=== PATIENT | female | born 1955 | race Caucasian/White ===

== ENCOUNTER 2019-04-12 12:34 | Inpatient (IN) | payer MEDICARE ==
[~2019-04-12] VITALS: Ht 167.6 cm; Wt 63.8 kg
--- NOTE | 2019-04-12 12:46 | NUR ---
MD AT BEDSIDE TO ASSES PT
--- NOTE | 2019-04-12 12:46 | NUR ---
64YO FEMALE PT BIB EMS FOR NOT FEELING BETTER AFTER ABX USE SINCE MAR 27. PT REPORTS N/V THIS AM AND JUST FEELING WEAK. PT IS CONNECTED TO MONITORING, VSS. FAMILY AT BEDSIDE. CALL LIGHT WITHIN REACH.
--- NOTE | 2019-04-12 12:53 | NUR ---
LAB AT BEDSIDE FOR BLOOD WORK
[2019-04-12] MEDS ORDERED: SODIUM CHLORIDE 0.9% 1,000ML IVBOLUS ONE (13:00)
[2019-04-12] MEDS ORDERED: SODIUM CHLORIDE FLUSH 10ML SYR IVF ONE (13:00)
[2019-04-12 13:10] LABS: BASOPHILS % (AUTO) 0 % (0-1); EOSINOPHILS # (AUTO) 0.11 x10^3/uL (0-0.4); EOSINOPHILS % (AUTO) 1 % (1-7); LYMPHOCYTES # (AUTO) 0.74 x10^3/uL (1-3.4); LYMPHOCYTES % (AUTO) 8 % (22-44); MD NO; MEAN CORPUSCULAR HGB CONC 32.5 g/dL (32.4-35.8); MEAN CORPUSCULAR VOLUME 92.4 fL (80-100); MEAN PLATELET VOLUME 9.3 fL (7.4-10.4); MONOCYTES # (AUTO) 0.36 x10^3/uL (0.2-0.8); MONOCYTES % (AUTO) 4 % (2-9); NEUTROPHILS # (AUTO) 7.83 x10^3/uL (1.8-6.8); NEUTROPHILS % (AUTO) 87 % (42-75); PLATELET COUNT 388 x10^3/uL (130-400); RED BLOOD COUNT 5.33 x10^6/uL (3.82-5.3); RED CELL DISTRIBUTION WIDTH 14.1 % (9.6-15.2)
[2019-04-12] MEDS ORDERED: ONDANSETRON 2MG/ML, 2ML ONE (13:10)
--- NOTE | 2019-04-12 13:14 | NUR ---
PT MEDICATED PER MAR
[2019-04-12 13:19] LABS: ALANINE AMINOTRANSFERASE 13 U/L (12-78); ALBUMIN 3.1 g/dL (3.4-5.0); ANION GAP 9 mmol/L (5-15); CALCIUM 8.9 mg/dL (8.5-10.1); CHLORIDE 100 mmol/L (98-107); CREATININE 1.09 mg/dL (0.55-1.02)
[2019-04-12 13:21] LABS: ALKALINE PHOSPHATASE 70 U/L (45-117); BILIRUBIN,TOTAL 0.3 mg/dL (0.2-1.0); TOTAL PROTEIN 7.3 g/dL (6.4-8.2)
--- NOTE | 2019-04-12 13:23 | NUR ---
STRAIGHT CATH PERFORMED URINE SENT TO LAB AT THIS TIME
[2019-04-12] MEDS ORDERED: ONDANSETRON 2MG/ML, 2ML IVPush ONE (13:30)
[2019-04-12 13:43] LABS: CULTURE INDICATED? YES; MICROSCOPIC INDICATED
--- NOTE | 2019-04-12 13:47 | NUR ---
PT RESTING ON GURNEY WATCHING TV WITH FAMILY AT BEDSIDE. NADN. CALL LIGHT WITHIN REACH
[2019-04-12] MEDS ORDERED: HYDR25TA6 PO (14:40)
[2019-04-12] MEDS ORDERED: LISI-167 PO (14:40)
[2019-04-12] MEDS ORDERED: INSU100V8 SQ (14:40)
[2019-04-12] MEDS ORDERED: FLUO60TA PO (14:40)
[2019-04-12] MEDS ORDERED: ATOR20TA86 PO (14:40)
[2019-04-12] MEDS ORDERED: ASPI1CPM9 PO (14:40)
--- NOTE | 2019-04-12 15:13 | NUR ---
THROUGHPUT: REPORT CALLED BY PRIMARY RN, PATIENT READY FOR TRANSPORT, DURING TRANSPORT OF CARE BY EMT TO FLOOR, PATIENT'S FAMILY MEMBER DEMANDING PATIENT TO RECEIVE ZOFRAN, FAMILY MEMBER NOTIFIED PATIENT RECEIVED ZOFRAN AT 1312 AND NO FURTHER ORDERS WERE NOTED AT THIS TIME. PATIENT NOT ACTIVELY VOMITING, NADN. SPOKE TO DR ESPARZA, AWAITING ASSESSMENT BY [facility] PRIOR TO FURTHER INTERVENTIONS. FAMILY MEMBER UPDATED ON POC, FAMILY REQUESTING NAMES OF STAFF MEMBERS INVOLVED IN CARE, NAMES PROVIDED PER REQUEST, PATIENT TRANSPORTED UPSTAIRS VIA GURNEY BY EMT WITH FAMILY MEMBER, BHUPINDER.
[2019-04-12 15:26] VITALS: BP 147/85
[2019-04-12] MEDS ORDERED: BISACODYL 10 MG SUPP PR PRN (16:30)
[2019-04-12] MEDS ORDERED: POLYETHYLENE GLYCOL 17 GM PACKET PO PRN (16:30)
[2019-04-12] MEDS ORDERED: ACETAMINOPHEN 325 MG TABLET PO PRN (16:30)
[2019-04-12] MEDS ORDERED: ONDANSETRON 2MG/ML, 2ML IVPush PRN (16:30)
[2019-04-12] MEDS ORDERED: DOCUSATE 100 MG CAPSULE PO PRN (16:30)
[2019-04-12] MEDS ORDERED: DEXTROSE 50%, 50ML SYRINGE IVPush PRN (17:00)
[2019-04-12] MEDS ORDERED: PROMETHAZINE 25 MG/ML, 1ML IM PRN (17:00)
[2019-04-12] MEDS ORDERED: DEXTROSE 4 GM TAB.CHEW PO PRN (17:00)
[2019-04-12] MEDS ORDERED: GLUCAGON 1 MG IM PRN (17:00)
[2019-04-12] MEDS ORDERED: PROMETHAZINE 25 MG/ML, 1ML ONE (17:01)
[2019-04-12] MEDS: CEFTRIAXONE PMX 1GM/50ML 50 ML IV SCH (17:26)
[2019-04-12] MEDS: FLUCONAZOLE 200 MG TABLET PO SCH (17:26)
[2019-04-12] MEDS: ENOXAPARIN 40 MG/0.4 ML SQ SCH (17:27)
[2019-04-12] MEDS: SODIUM CHLORIDE 0.9% 1,000 ML IV SCH (17:27)
[2019-04-12 19:05] VITALS: BP 122/74
[2019-04-12] MEDS: SODIUM CHLORIDE FLUSH 10ML SYR IVF SCH (21:00)
[2019-04-12] MEDS: ASPIRIN/DIPYRIDAMOLE 25MG/200MG CAPSULE PO SCH (21:12)
[2019-04-12] MEDS: ATORVASTATIN 20 MG TABLET PO SCH (21:12)
[2019-04-12] MEDS: INSULIN LISPRO 100 UNITS/ML, PEN SQ-INSULIN SCH (21:26)
[2019-04-12] MEDS ORDERED: IBUPROFEN 200 MG TABLET PO PRN (23:30)
[2019-04-13] MEDS: OXYcodone IR 5MG TABLET PO PRN ×2 (00:43→22:52)
[2019-04-13] MEDS: SODIUM CHLORIDE 0.9% 1,000 ML IV SCH ×2 (00:43→07:55)
[2019-04-13 01:17] VITALS: BP 160/93
[2019-04-13 04:28] LABS: BASOPHILS # (AUTO) 0.06 x10^3/uL (0-0.1); BASOPHILS % (AUTO) 1 % (0-1); EOSINOPHILS # (AUTO) 0.14 x10^3/uL (0-0.4); EOSINOPHILS % (AUTO) 2 % (1-7); LYMPHOCYTES # (AUTO) 1.83 x10^3/uL (1-3.4); LYMPHOCYTES % (AUTO) 19 % (22-44); MD NO; MEAN CORPUSCULAR HEMOGLOBIN 30.2 pg (27.0-34.8); MEAN CORPUSCULAR HGB CONC 32.6 g/dL (32.4-35.8); MEAN CORPUSCULAR VOLUME 92.6 fL (80-100); MEAN PLATELET VOLUME 8.9 fL (7.4-10.4); MONOCYTES # (AUTO) 0.71 x10^3/uL (0.2-0.8); MONOCYTES % (AUTO) 8 % (2-9); NEUTROPHILS # (AUTO) 6.69 x10^3/uL (1.8-6.8); NEUTROPHILS % (AUTO) 71 % (42-75); PLATELET COUNT 353 x10^3/uL (130-400); RED CELL DISTRIBUTION WIDTH 14.6 % (9.6-15.2)
[2019-04-13 04:41] LABS: ALBUMIN 2.5 g/dL (3.4-5.0); ANION GAP 7 mmol/L (5-15); CALCIUM 8.2 mg/dL (8.5-10.1); CHLORIDE 106 mmol/L (98-107)
[2019-04-13 04:53] LABS: ALANINE AMINOTRANSFERASE 8 U/L (12-78); ALKALINE PHOSPHATASE 51 U/L (45-117); BILIRUBIN,TOTAL 0.3 mg/dL (0.2-1.0); CREATININE 0.89 mg/dL (0.55-1.02); TOTAL PROTEIN 5.8 g/dL (6.4-8.2)
[2019-04-13 07:35] VITALS: BP 144/87
[2019-04-13 07:36] VITALS: BP 114/66
[2019-04-13 07:42] VITALS: BP 104/66
[2019-04-13] MEDS: INSULIN LISPRO 100 UNITS/ML, PEN SQ-INSULIN SCH ×4 (07:55→20:39)
[2019-04-13] MEDS ORDERED: MAGNESIUM SULFATE PMX 2GM/50ML 50 ML IV ONE (08:00)
[2019-04-13 09:16] LABS: HEMOGLOBIN A1C 13.1 % (4.2-6.3)
[2019-04-13] MEDS: ASPIRIN/DIPYRIDAMOLE 25MG/200MG CAPSULE PO SCH ×2 (10:25→20:39)
[2019-04-13] MEDS: FLUOXETINE HCL 20 MG CAPSULE PO SCH (10:25)
[2019-04-13] MEDS: SODIUM CHLORIDE FLUSH 10ML SYR IVF SCH ×2 (10:25→20:43)
[2019-04-13] MEDS: INSULIN GLARGINE 100 UNITS/ML, PEN SQ-INSULIN SCH (11:40)
--- NOTE | 2019-04-13 13:47 | NUR ---
REC: Chopped/thin liquids; orange sheet posted in room Addendum: 04/13/19 at 1347 by Martha HARDEN Amended: Links added.
[2019-04-13 14:30] VITALS: BP 136/82
[2019-04-13] MEDS ORDERED: OMNIPAQUE 350 MG/ML, 100ML BOTTLE ONE (16:01)
[2019-04-13] MEDS: CEFTRIAXONE PMX 1GM/50ML 50 ML IV SCH (17:04)
[2019-04-13] MEDS: FLUCONAZOLE 200 MG TABLET PO SCH (17:04)
[2019-04-13] MEDS: ENOXAPARIN 40 MG/0.4 ML SQ SCH (17:05)
[2019-04-13 19:20] VITALS: BP 151/75
[2019-04-13] MEDS: ATORVASTATIN 20 MG TABLET PO SCH (20:38)
[2019-04-14] VITALS (9 sets, daily range): BP systolic 99–166; BP diastolic 65–89
[2019-04-14] MEDS: INSULIN LISPRO 100 UNITS/ML, PEN SQ-INSULIN SCH ×4 (07:00→20:17)
[2019-04-14] MEDS: SODIUM CHLORIDE FLUSH 10ML SYR IVF SCH ×2 (09:00→20:17)
[2019-04-14] MEDS: INSULIN GLARGINE 100 UNITS/ML, PEN SQ-INSULIN SCH (09:00)
[2019-04-14] MEDS: ASPIRIN/DIPYRIDAMOLE 25MG/200MG CAPSULE PO SCH ×2 (09:27→20:16)
[2019-04-14] MEDS: FLUOXETINE HCL 20 MG CAPSULE PO SCH (09:27)
[2019-04-14] MEDS ORDERED: MAALOX/HYOSCYAMINE/LIDOCAINE 45 ML BTL PO ONE (11:00)
[2019-04-14] MEDS: FLUCONAZOLE 200 MG TABLET PO SCH (16:41)
[2019-04-14] MEDS: OXYcodone IR 5MG TABLET PO PRN (16:44)
[2019-04-14] MEDS: ENOXAPARIN 40 MG/0.4 ML SQ SCH (16:48)
[2019-04-14] MEDS: CEFTRIAXONE PMX 1GM/50ML 50 ML IV SCH (16:52)
[2019-04-14] MEDS: ATORVASTATIN 20 MG TABLET PO SCH (20:16)
[2019-04-15] VITALS (10 sets, daily range): BP systolic 114–178; BP diastolic 68–93
[2019-04-15 05:47] LABS: ANION GAP 4 mmol/L (5-15); CALCIUM 8.9 mg/dL (8.5-10.1); CHLORIDE 103 mmol/L (98-107)
[2019-04-15 05:51] LABS: CREATININE 0.78 mg/dL (0.55-1.02)
[2019-04-15] MEDS: ASPIRIN/DIPYRIDAMOLE 25MG/200MG CAPSULE PO SCH (07:40)
[2019-04-15] MEDS: FLUOXETINE HCL 20 MG CAPSULE PO SCH (07:41)
[2019-04-15] MEDS: INSULIN LISPRO 100 UNITS/ML, PEN SQ-INSULIN SCH ×3 (07:45→16:52)
[2019-04-15] MEDS: SODIUM CHLORIDE FLUSH 10ML SYR IVF SCH (07:46)
[2019-04-15] MEDS ORDERED: LISINOPRIL 10 MG TABLET PO SCH (09:00)
[2019-04-15] MEDS: INSULIN GLARGINE 100 UNITS/ML, PEN SQ-INSULIN SCH (10:15)
[2019-04-15] MEDS ORDERED: FLUC200T PO (16:20)
[2019-04-15] MEDS: CEFTRIAXONE PMX 1GM/50ML 50 ML IV SCH (16:52)
[2019-04-15] MEDS: FLUCONAZOLE 200 MG TABLET PO SCH (16:53)
[2019-04-15] MEDS: ENOXAPARIN 40 MG/0.4 ML SQ SCH (16:53)
== END 2019-04-15 17:47 | disposition home health service (06) | DRG 757 ==
LOC: ED 14:13 → EDIP 14:35 → 4NE 15:15
PROVIDERS: ADMIT Internal Medicine; ATTEND Internal Medicine
PROC: 0T9B70Z Drainage of Bladder with Drainage Device, Via Natural or Artificial Opening (ICD-10-PCS; principal; 2019-04-12)
DX: B37.49 Other urogenital candidiasis (principal); G93.41 Metabolic encephalopathy; N17.9 Acute kidney failure, unspecified; E87.1 Hypo-osmolality and hyponatremia; I69.354 Hemiplegia and hemiparesis following cerebral infarction affecting left non-dominant side; I12.9 Hypertensive chronic kidney disease with stage 1 through stage 4 chronic kidney disease, or unspecified chronic kidney disease; E11.22 Type 2 diabetes mellitus with diabetic chronic kidney disease; E11.51 Type 2 diabetes mellitus with diabetic peripheral angiopathy without gangrene; E11.65 Type 2 diabetes mellitus with hyperglycemia; E27.9 Disorder of adrenal gland, unspecified; E83.42 Hypomagnesemia; F17.200 Nicotine dependence, unspecified, uncomplicated; G35 Multiple sclerosis; N18.9 Chronic kidney disease, unspecified; Z79.4 Long term (current) use of insulin; Z80.1 Family history of malignant neoplasm of trachea, bronchus and lung; I69.391 Dysphagia following cerebral infarction; Z80.3 Family history of malignant neoplasm of breast; Z80.49 Family history of malignant neoplasm of other genital organs; Z91.19 Patient's noncompliance with other medical treatment and regimen; Z90.49 Acquired absence of other specified parts of digestive tract; Z88.8 Allergy status to other drugs, medicaments and biological substances
CPT/HCPCS: 36415; 74178; 76770; 80048; 80053; 81001; 82088; 82140; 82533; 82607; 82962; 83036; 83690; 83735; 84100; 84244; 84443; 85025; 87040; 87086; 87106; 93005; 99285; G0378; J0696; J1650; J2405; J2550; Q9967; J1815; J3475; J7030

== ENCOUNTER 2019-12-28 07:33 | Inpatient (IN) | payer MEDICARE ==
[~2019-12-28] VITALS: Ht 162.6 cm; Wt 66.5 kg
[~2019-12-28 07:33] MED LIST: AMLO10TA8 PO; ASPI1CPM9 PO; ATOR20TA86 PO; CEFD300C37 PO; DOCU-131 PO; FLUC200T PO; FLUO60TA PO; GABA-826 PO; HYDR25TA6 PO; INSU100I11 SQ-INSULIN; INSU100I13 SQ-INSULIN; INSU100V8 SQ; LISI-167 PO; POLY17PO5 PO; depakote PO
[2019-12-28] MEDS ORDERED: ONDANSETRON 2MG/ML, 2ML ONE (08:16)
[2019-12-28] MEDS ORDERED: MORPHINE SULFATE 4 MG/ML, 1ML ONE (08:17)
--- NOTE | 2019-12-28 08:22 | NUR ---
MEDS PER AUG. CATHETER CLAMPED FOR CLEAN URINE SAMPLE. PLAN FOR US. VSS. CALL MENDOZA IN REACH. PT NAD, ON PHONE, A&OX4 GCS 15.
[2019-12-28] MEDS: MORPHINE SULFATE 4 MG/ML, 1ML IVPush PRN (08:25)
[2019-12-28] MEDS ORDERED: SODIUM CHLORIDE FLUSH 10ML SYR IVF ONE (08:30)
[2019-12-28] MEDS ORDERED: ONDANSETRON 2MG/ML, 2ML IVPush ONE (08:30)
[2019-12-28 08:49] LABS: BASOPHILS # (AUTO) 0.01 x10^3/uL (0-0.1); BASOPHILS % (AUTO) 0 % (0-1); EOSINOPHILS # (AUTO) 0.32 x10^3/uL (0-0.4); EOSINOPHILS % (AUTO) 3 % (1-7); LYMPHOCYTES # (AUTO) 1.91 x10^3/uL (1-3.4); LYMPHOCYTES % (AUTO) 17 % (22-44); MD NO; MEAN CORPUSCULAR HEMOGLOBIN 30.2 pg (27.0-34.8); MEAN CORPUSCULAR HGB CONC 32.2 g/dL (32.4-35.8); MEAN PLATELET VOLUME 8.2 fL (7.4-10.4); MONOCYTES # (AUTO) 0.55 x10^3/uL (0.2-0.8); MONOCYTES % (AUTO) 5 % (2-9); NEUTROPHILS # (AUTO) 8.64 x10^3/uL (1.8-6.8); NEUTROPHILS % (AUTO) 76 % (42-75); PLATELET COUNT 450 x10^3/uL (130-400); RED BLOOD COUNT 4.53 x10^6/uL (3.82-5.3); RED CELL DISTRIBUTION WIDTH 16.1 % (9.6-15.2)
[2019-12-28 08:58] LABS: MICROSCOPIC INDICATED
[2019-12-28 09:00] LABS: ALBUMIN 3.6 g/dL (3.4-5.0); CALCIUM 9.9 mg/dL (8.5-10.1); CHLORIDE 103 mmol/L (98-107); CREATININE 0.82 mg/dL (0.55-1.02)
[2019-12-28 09:05] LABS: ANION GAP 4 mmol/L (5-15)
--- NOTE | 2019-12-28 09:30 | NUR ---
pt tbadm for uti, aware and agrees. sts pain is improved. abx req from pharm. as
[2019-12-28] MEDS ORDERED: ERTAPENEM 1 GM in SODIUM CHLORIDE 0.9% 50 ML IV ONE (10:00)
--- NOTE | 2019-12-28 10:10 | NUR ---
attempt x2 to call report. as
--- NOTE | 2019-12-28 10:29 | NUR ---
report to jennifer scott. as
[2019-12-28] MEDS ORDERED: MICAFUNGIN 50 MG in SODIUM CHLORIDE 0.9% 100 ML IV ONE (11:00)
[2019-12-28 14:16] VITALS: BP 198/83
[2019-12-28] MEDS: NICOTINE 21 MG/24 HR PATCH.TD24 TD SCH (16:30)
[2019-12-28] MEDS: INSULIN LISPRO 100 UNITS/ML, PEN SQ-INSULIN SCH ×2 (16:30→20:39)
[2019-12-28] MEDS: HEPARIN 5,000 UNITS/ML, 1ML SQ SCH (16:34)
[2019-12-28] MEDS: DIPHENHYDRAMINE 25 MG CAPSULE PO PRN (16:34)
[2019-12-28] MEDS: SODIUM CHLORIDE 0.9% 1,000 ML IV SCH (16:34)
[2019-12-28] MEDS: morphine SULFATE 10 MG/ML, 1ML IVPush PRN ×2 (17:30→22:56)
[2019-12-28 18:50] VITALS: BP 155/68
[2019-12-28 19:22] VITALS: BP 176/80
[2019-12-28] MEDS: ASPIRIN/DIPYRIDAMOLE 25MG/200MG CAPSULE PO SCH (20:37)
[2019-12-28] MEDS: DOCUSATE 100 MG CAPSULE PO SCH (20:37)
[2019-12-28] MEDS: ATORVASTATIN 20 MG TABLET PO SCH (20:37)
[2019-12-28 20:49] VITALS: BP 152/68
[2019-12-28] MEDS ORDERED: INSULIN GLARGINE 100 UNITS/ML, PEN SQ-INSULIN SCH (21:00)
[2019-12-28] MEDS ORDERED: OMNIPAQUE 350 MG/ML, 100ML BOTTLE ONE (22:23)
[2019-12-29] MEDS: HEPARIN 5,000 UNITS/ML, 1ML SQ SCH ×4 (00:43→23:31)
[2019-12-29] MEDS: OXYcodone/APAP 5/325MG TABLET PO PRN (00:43)
[2019-12-29] MEDS: DIPHENHYDRAMINE 25 MG CAPSULE PO PRN ×3 (00:43→23:32)
[2019-12-29 01:23] VITALS: BP 155/99
[2019-12-29] MEDS: ONDANSETRON 2MG/ML, 2ML IVPush PRN ×2 (01:36→19:42)
[2019-12-29] MEDS: morphine SULFATE 10 MG/ML, 1ML IVPush PRN ×3 (02:06→23:32)
[2019-12-29] MEDS: SODIUM CHLORIDE 0.9% 1,000 ML IV SCH (05:25)
[2019-12-29 05:40] LABS: BASOPHILS # (AUTO) 0.05 x10^3/uL (0-0.1); BASOPHILS % (AUTO) 0 % (0-1); EOSINOPHILS # (AUTO) 0.11 x10^3/uL (0-0.4); EOSINOPHILS % (AUTO) 1 % (1-7); LYMPHOCYTES # (AUTO) 2.16 x10^3/uL (1-3.4); LYMPHOCYTES % (AUTO) 16 % (22-44); MD NO; MEAN CORPUSCULAR HEMOGLOBIN 30.5 pg (27.0-34.8); MEAN CORPUSCULAR HGB CONC 32.4 g/dL (32.4-35.8); MEAN PLATELET VOLUME 8.4 fL (7.4-10.4); MONOCYTES # (AUTO) 0.52 x10^3/uL (0.2-0.8); MONOCYTES % (AUTO) 4 % (2-9); NEUTROPHILS # (AUTO) 10.67 x10^3/uL (1.8-6.8); NEUTROPHILS % (AUTO) 79 % (42-75); PLATELET COUNT 382 x10^3/uL (130-400); RED BLOOD COUNT 3.82 x10^6/uL (3.82-5.3); RED CELL DISTRIBUTION WIDTH 16.2 % (9.6-15.2)
[2019-12-29 05:52] LABS: ALBUMIN 2.8 g/dL (3.4-5.0); ANION GAP 4 mmol/L (5-15); CALCIUM 9.1 mg/dL (8.5-10.1); CHLORIDE 104 mmol/L (98-107)
[2019-12-29 05:58] LABS: ALANINE AMINOTRANSFERASE 14 U/L (12-78); ALKALINE PHOSPHATASE 77 U/L (45-117); BILIRUBIN,TOTAL 0.3 mg/dL (0.2-1.0)
[2019-12-29 08:20] VITALS: BP 167/65
[2019-12-29] MEDS: INSULIN LISPRO 100 UNITS/ML, PEN SQ-INSULIN SCH ×4 (08:33→21:45)
[2019-12-29] MEDS: AMLODIPINE 10 MG TAB PO SCH (08:34)
[2019-12-29] MEDS: ASPIRIN/DIPYRIDAMOLE 25MG/200MG CAPSULE PO SCH ×2 (08:34→19:42)
[2019-12-29] MEDS: FLUOXETINE HCL 20 MG CAPSULE PO SCH (08:34)
[2019-12-29] MEDS: DOCUSATE 100 MG CAPSULE PO SCH ×2 (08:34→19:42)
[2019-12-29] MEDS ORDERED: LISINOPRIL 10 MG TABLET PO SCH (09:00)
[2019-12-29] MEDS: MICAFUNGIN 100 MG in SODIUM CHLORIDE 0.9% 100 ML IV SCH (10:15)
[2019-12-29] MEDS: ERTAPENEM 1 GM in SODIUM CHLORIDE 0.9% 50 ML IV SCH (12:45)
[2019-12-29 13:23] VITALS: BP 166/76
[2019-12-29] MEDS: NICOTINE 21 MG/24 HR PATCH.TD24 TD SCH (16:29)
[2019-12-29] MEDS: MORPHINE SULFATE 4 MG/ML, 1ML IVPush PRN (16:29)
[2019-12-29] MEDS: ATORVASTATIN 20 MG TABLET PO SCH (19:42)
[2019-12-29 21:13] VITALS: BP 154/77
[2019-12-29] MEDS: INSULIN GLARGINE 100 UNITS/ML, PEN SQ-INSULIN SCH (21:35)
[2019-12-30 00:28] VITALS: BP 163/77
[2019-12-30] MEDS: morphine SULFATE 10 MG/ML, 1ML IVPush PRN ×2 (03:10→12:14)
[2019-12-30] MEDS: ONDANSETRON 2MG/ML, 2ML IVPush PRN (03:10)
[2019-12-30 05:33] LABS: BASOPHILS # (AUTO) 0.03 x10^3/uL (0-0.1); BASOPHILS % (AUTO) 0 % (0-1); EOSINOPHILS # (AUTO) 0.15 x10^3/uL (0-0.4); EOSINOPHILS % (AUTO) 2 % (1-7); LYMPHOCYTES # (AUTO) 2.28 x10^3/uL (1-3.4); LYMPHOCYTES % (AUTO) 24 % (22-44); MD NO; MEAN CORPUSCULAR HEMOGLOBIN 30.3 pg (27.0-34.8); MEAN CORPUSCULAR HGB CONC 32.4 g/dL (32.4-35.8); MEAN PLATELET VOLUME 8.9 fL (7.4-10.4); MONOCYTES # (AUTO) 0.54 x10^3/uL (0.2-0.8); MONOCYTES % (AUTO) 6 % (2-9); NEUTROPHILS # (AUTO) 6.37 x10^3/uL (1.8-6.8); NEUTROPHILS % (AUTO) 68 % (42-75); PLATELET COUNT 362 x10^3/uL (130-400); RED BLOOD COUNT 3.79 x10^6/uL (3.82-5.3)
[2019-12-30] MEDS: INSULIN LISPRO 100 UNITS/ML, PEN SQ-INSULIN SCH ×4 (07:00→20:04)
[2019-12-30] MEDS: HEPARIN 5,000 UNITS/ML, 1ML SQ SCH ×2 (08:09→16:10)
[2019-12-30] MEDS: ASPIRIN/DIPYRIDAMOLE 25MG/200MG CAPSULE PO SCH ×2 (08:09→20:03)
[2019-12-30] MEDS: FLUOXETINE HCL 20 MG CAPSULE PO SCH (08:10)
[2019-12-30] MEDS: AMLODIPINE 10 MG TAB PO SCH (08:10)
[2019-12-30] MEDS: LISINOPRIL 40 MG TABLET PO SCH (08:10)
[2019-12-30] MEDS: DOCUSATE 100 MG CAPSULE PO SCH ×2 (08:10→20:03)
[2019-12-30 08:31] VITALS: BP 146/79
[2019-12-30] MEDS: CHLORTHALIDONE 25 MG TABLET PO SCH (10:28)
[2019-12-30] MEDS: MICAFUNGIN 100 MG in SODIUM CHLORIDE 0.9% 100 ML IV SCH (10:28)
[2019-12-30] MEDS: ERTAPENEM 1 GM in SODIUM CHLORIDE 0.9% 50 ML IV SCH (11:58)
[2019-12-30 15:39] VITALS: BP 148/75
[2019-12-30] MEDS: VORICONAZOLE 200 MG TABLET PO SCH (16:10)
[2019-12-30] MEDS: NICOTINE 21 MG/24 HR PATCH.TD24 TD SCH (16:11)
[2019-12-30] MEDS: DIPHENHYDRAMINE 25 MG CAPSULE PO PRN (20:03)
[2019-12-30] MEDS: MAGNESIUM HYDROXIDE 8%, 30ML UDC PO SCH (20:03)
[2019-12-30] MEDS: ATORVASTATIN 20 MG TABLET PO SCH (20:03)
[2019-12-30] MEDS: INSULIN GLARGINE 100 UNITS/ML, PEN SQ-INSULIN SCH (20:04)
[2019-12-30 20:24] VITALS: BP 177/72
[2019-12-31] MEDS: OXYcodone/APAP 5/325MG TABLET PO PRN ×2 (00:01→14:23)
[2019-12-31] MEDS: HEPARIN 5,000 UNITS/ML, 1ML SQ SCH ×3 (00:01→15:52)
[2019-12-31 00:14] VITALS: BP 153/69
[2019-12-31] MEDS: VORICONAZOLE 200 MG TABLET PO SCH ×2 (03:28→15:52)
[2019-12-31] MEDS: INSULIN LISPRO 100 UNITS/ML, PEN SQ-INSULIN SCH ×4 (07:00→21:38)
[2019-12-31 07:37] VITALS: BP 162/78
[2019-12-31] MEDS: ASPIRIN/DIPYRIDAMOLE 25MG/200MG CAPSULE PO SCH ×2 (07:49→21:37)
[2019-12-31] MEDS: DIPHENHYDRAMINE 25 MG CAPSULE PO PRN (07:50)
[2019-12-31] MEDS: AMLODIPINE 10 MG TAB PO SCH (07:50)
[2019-12-31] MEDS: LISINOPRIL 40 MG TABLET PO SCH (07:50)
[2019-12-31] MEDS: CHLORTHALIDONE 25 MG TABLET PO SCH ×2 (07:50→09:00)
[2019-12-31] MEDS: DOCUSATE 100 MG CAPSULE PO SCH ×2 (07:50→21:37)
[2019-12-31] MEDS: FLUOXETINE HCL 20 MG CAPSULE PO SCH (07:50)
[2019-12-31] MEDS: CYCLOBENZAPRINE 10 MG TABLET PO PRN (12:26)
[2019-12-31 13:15] VITALS: BP 162/82
[2019-12-31] MEDS: NICOTINE 21 MG/24 HR PATCH.TD24 TD SCH (15:51)
[2019-12-31 19:13] VITALS: BP 124/71
[2019-12-31] MEDS: ATORVASTATIN 20 MG TABLET PO SCH (21:37)
[2019-12-31] MEDS: VORICONAZOLE 50 MG TABLET PO SCH (21:37)
[2019-12-31] MEDS: MAGNESIUM HYDROXIDE 8%, 30ML UDC PO SCH (21:37)
[2019-12-31] MEDS: INSULIN GLARGINE 100 UNITS/ML, PEN SQ-INSULIN SCH (21:38)
[2020-01-01] MEDS: HEPARIN 5,000 UNITS/ML, 1ML SQ SCH ×3 (00:30→16:05)
[2020-01-01 01:03] VITALS: BP 135/77
[2020-01-01] MEDS: DIPHENHYDRAMINE 25 MG CAPSULE PO PRN (03:35)
[2020-01-01] MEDS: OXYcodone/APAP 5/325MG TABLET PO PRN (03:35)
[2020-01-01] MEDS: INSULIN LISPRO 100 UNITS/ML, PEN SQ-INSULIN SCH ×4 (07:00→20:07)
[2020-01-01 07:54] VITALS: BP 121/74
[2020-01-01] MEDS ORDERED: POLYETHYLENE GLYCOL 17 GM PACKET NG ONE (08:30)
[2020-01-01] MEDS: LISINOPRIL 40 MG TABLET PO SCH (08:58)
[2020-01-01] MEDS: ASPIRIN/DIPYRIDAMOLE 25MG/200MG CAPSULE PO SCH ×2 (08:58→20:05)
[2020-01-01] MEDS: TAMSULOSIN 0.4 MG CAP.ER.24H PO SCH (08:59)
[2020-01-01] MEDS: FLUOXETINE HCL 20 MG CAPSULE PO SCH (08:59)
[2020-01-01] MEDS: VORICONAZOLE 50 MG TABLET PO SCH ×2 (08:59→20:06)
[2020-01-01] MEDS: AMLODIPINE 10 MG TAB PO SCH (08:59)
[2020-01-01] MEDS: CHLORTHALIDONE 25 MG TABLET PO SCH (10:25)
[2020-01-01] MEDS: DOCUSATE 100 MG CAPSULE PO SCH ×2 (10:25→20:06)
[2020-01-01] MEDS ORDERED: VORI50TA PO ×2 (11:54)
[2020-01-01] MEDS ORDERED: MAGN400O7 PO (11:54)
[2020-01-01] MEDS ORDERED: CHLO25TA PO ×2 (11:54)
[2020-01-01] MEDS ORDERED: INSU100I13 SQ-INSULIN ×2 (11:54)
[2020-01-01] MEDS ORDERED: LISI40TA PO ×2 (11:54)
[2020-01-01] MEDS ORDERED: TAMS-11 PO (11:54)
[2020-01-01 14:50] VITALS: BP 125/76
[2020-01-01] MEDS: NICOTINE 21 MG/24 HR PATCH.TD24 TD SCH (16:01)
[2020-01-01] MEDS: MAGNESIUM HYDROXIDE 8%, 30ML UDC PO SCH (20:05)
[2020-01-01] MEDS: INSULIN GLARGINE 100 UNITS/ML, PEN SQ-INSULIN SCH (20:06)
[2020-01-01] MEDS: ATORVASTATIN 20 MG TABLET PO SCH (20:06)
[2020-01-01 20:15] VITALS: BP 100/65
[2020-01-02] VITALS (18 sets, daily range): BP systolic 76–110; BP diastolic 38–73
[2020-01-02] MEDS: HEPARIN 5,000 UNITS/ML, 1ML SQ SCH ×3 (01:06→16:52)
[2020-01-02] MEDS: OXYcodone/APAP 5/325MG TABLET PO PRN ×3 (04:33→21:21)
[2020-01-02] MEDS: ONDANSETRON 2MG/ML, 2ML IVPush PRN (04:33)
[2020-01-02] MEDS ORDERED: SODIUM CHLORIDE 0.9%, 500ML IVBOLUS ONE ×3 (07:30→18:30)
[2020-01-02] MEDS: ASPIRIN/DIPYRIDAMOLE 25MG/200MG CAPSULE PO SCH ×2 (07:49→21:10)
[2020-01-02] MEDS: VORICONAZOLE 50 MG TABLET PO SCH ×2 (07:50→21:10)
[2020-01-02] MEDS: TAMSULOSIN 0.4 MG CAP.ER.24H PO SCH (07:51)
[2020-01-02] MEDS: FLUOXETINE HCL 20 MG CAPSULE PO SCH (07:51)
[2020-01-02] MEDS: INSULIN LISPRO 100 UNITS/ML, PEN SQ-INSULIN SCH ×4 (07:52→21:08)
[2020-01-02] MEDS: DOCUSATE 100 MG CAPSULE PO SCH ×2 (07:53→19:02)
[2020-01-02] MEDS: CHLORTHALIDONE 25 MG TABLET PO SCH (07:53)
[2020-01-02] MEDS: LISINOPRIL 40 MG TABLET PO SCH (07:53)
[2020-01-02] MEDS: AMLODIPINE 10 MG TAB PO SCH (07:53)
[2020-01-02 08:35] LABS: MEAN CORPUSCULAR HGB CONC 31.9 g/dL (32.4-35.8); MEAN PLATELET VOLUME 8.8 fL (7.4-10.4); PLATELET COUNT 395 x10^3/uL (130-400); RED BLOOD COUNT 4.23 x10^6/uL (3.82-5.3); RED CELL DISTRIBUTION WIDTH 16.4 % (9.6-15.2)
[2020-01-02] MEDS ORDERED: SODIUM CHLORIDE 0.9% 1,000ML IVBOLUS ONE ×2 (09:00→11:30)
[2020-01-02 09:04] LABS: MD YES
[2020-01-02 09:06] LABS: BAND#(MANUAL) 1.62 x10^3/uL; BANDS%(MANUAL) 9 % (0-7); EOS#(MANUAL) 0.18 x10^3/uL (0.0-0.4); EOS% (MANUAL) 1 % (1-7); LYMPH#(MANUAL) 1.44 x10^3/uL (1-3.4); LYMPHS% (MANUAL) 8 % (22-44); MONOS#(MANUAL) 1.26 x10^3/uL (0.3-2.7); MONOS% (MANUAL) 7 % (2-9); SEGS% (MANUAL) 75 % (42-75)
[2020-01-02 09:07] LABS: <PLATELET ESTIMATE> ADEQUATE; <PLT MORPHOLOGY> NORMAL PLT MORPH; <RBC MORPHOLOGY> NORMAL
[2020-01-02 09:31] LABS: ALANINE AMINOTRANSFERASE 14 U/L (12-78); ALBUMIN 3.1 g/dL (3.4-5.0); ANION GAP 6 mmol/L (5-15); CALCIUM 9.9 mg/dL (8.5-10.1); CHLORIDE 103 mmol/L (98-107)
[2020-01-02 09:34] LABS: ALKALINE PHOSPHATASE 70 U/L (45-117); BILIRUBIN,TOTAL 0.4 mg/dL (0.2-1.0); CREATININE 2.02 mg/dL (0.55-1.02)
[2020-01-02] MEDS: SODIUM CHLORIDE 0.9% 1,000 ML IV SCH ×5 (12:30→22:52)
[2020-01-02 15:49] LABS: BASOPHILS % (AUTO) 0 % (0-1); EOSINOPHILS # (AUTO) 0.01 x10^3/uL (0-0.4); EOSINOPHILS % (AUTO) 0 % (1-7); LYMPHOCYTES # (AUTO) 1.02 x10^3/uL (1-3.4); LYMPHOCYTES % (AUTO) 6 % (22-44); MD YES; MEAN CORPUSCULAR HEMOGLOBIN 30.4 pg (27.0-34.8); MEAN CORPUSCULAR HGB CONC 32.4 g/dL (32.4-35.8); MEAN PLATELET VOLUME 8.6 fL (7.4-10.4); MONOCYTES % (AUTO) 5 % (2-9); NEUTROPHILS # (AUTO) 16.86 x10^3/uL (1.8-6.8); NEUTROPHILS % (AUTO) 90 % (42-75); PLATELET COUNT 338 x10^3/uL (130-400); RED BLOOD COUNT 3.53 x10^6/uL (3.82-5.3); RED CELL DISTRIBUTION WIDTH 16.7 % (9.6-15.2)
[2020-01-02 15:56] LABS: MICROSCOPIC INDICATED
[2020-01-02] MEDS: NICOTINE 21 MG/24 HR PATCH.TD24 TD SCH (16:30)
[2020-01-02] MEDS ORDERED: MICAFUNGIN 150 MG in SODIUM CHLORIDE 0.9% 100 ML IV SCH (16:30)
[2020-01-02] MEDS ORDERED: MEROPENEM 500 MG in SODIUM CHLORIDE 0.9% 100 ML IV SCH (16:30)
[2020-01-02 16:38] LABS: BAND#(MANUAL) 1.13 x10^3/uL; BANDS%(MANUAL) 6 % (0-7); LYMPHS% (MANUAL) 8 % (22-44); MONOS#(MANUAL) 0.38 x10^3/uL (0.3-2.7); MONOS% (MANUAL) 2 % (2-9); SEG#(MANUAL) 15.79 x10^3/uL (1.8-6.8); SEGS% (MANUAL) 84 % (42-75)
[2020-01-02 16:39] LABS: <PLATELET ESTIMATE> ADEQUATE; <PLT MORPHOLOGY> NORMAL PLT MORPH; <RBC MORPHOLOGY> NORMAL
[2020-01-02] MEDS: MEROPENEM 500 MG in SODIUM CHLORIDE 0.9% 100 ML IV SCH (17:59)
[2020-01-02] MEDS: MAGNESIUM HYDROXIDE 8%, 30ML UDC PO SCH (19:02)
[2020-01-02] MEDS: INSULIN GLARGINE 100 UNITS/ML, PEN SQ-INSULIN SCH (21:10)
[2020-01-02] MEDS: ATORVASTATIN 20 MG TABLET PO SCH (21:10)
[2020-01-03] VITALS (12 sets, daily range): BP systolic 72–163; BP diastolic 38–68
[2020-01-03] MEDS ORDERED: SODIUM CHLORIDE 0.9%, 500ML IVBOLUS ONE
[2020-01-03] MEDS: HEPARIN 5,000 UNITS/ML, 1ML SQ SCH ×4 (00:30→23:54)
[2020-01-03] MEDS ORDERED: SODIUM CHLORIDE 0.9% 1,000ML IVBOLUS ONE (02:30)
[2020-01-03 04:14] LABS: HCT (SEDRATE) 30.8 % (34.6-47.8)
[2020-01-03 04:16] LABS: MEAN CORPUSCULAR HEMOGLOBIN 30.7 pg (27.0-34.8); MEAN PLATELET VOLUME 8.6 fL (7.4-10.4); PLATELET COUNT 294 x10^3/uL (130-400); RED BLOOD COUNT 3.23 x10^6/uL (3.82-5.3); RED CELL DISTRIBUTION WIDTH 16.2 % (9.6-15.2)
[2020-01-03 04:23] LABS: ALANINE AMINOTRANSFERASE 12 U/L (12-78); ALBUMIN 2.2 g/dL (3.4-5.0); ANION GAP 6 mmol/L (5-15); CALCIUM 7.7 mg/dL (8.5-10.1); CHLORIDE 113 mmol/L (98-107); CREATININE 1.06 mg/dL (0.55-1.02)
[2020-01-03 04:31] LABS: ALKALINE PHOSPHATASE 53 U/L (45-117); BILIRUBIN,TOTAL 0.2 mg/dL (0.2-1.0); TOTAL PROTEIN 5.4 g/dL (6.4-8.2)
[2020-01-03 04:50] LABS: MD YES
[2020-01-03 04:53] LABS: BAND#(MANUAL) 0.14 x10^3/uL; BANDS%(MANUAL) 1 % (0-7); EOS#(MANUAL) 0.14 x10^3/uL (0.0-0.4); EOS% (MANUAL) 1 % (1-7); LYMPH#(MANUAL) 1.41 x10^3/uL (1-3.4); LYMPHS% (MANUAL) 10 % (22-44); METAMYELOCYTES# (MANUAL) 0.14 x10^3/uL (0-0); METAMYELOCYTES% (MANUAL) 1 % (0-1); MONOS#(MANUAL) 1.69 x10^3/uL (0.3-2.7); MONOS% (MANUAL) 12 % (2-9); SEG#(MANUAL) 10.58 x10^3/uL (1.8-6.8); SEGS% (MANUAL) 75 % (42-75)
[2020-01-03 04:54] LABS: ANISOCYTOSIS 1+
[2020-01-03 04:56] LABS: <PLATELET ESTIMATE> ADEQUATE; LARGE PLATELETS 1+
[2020-01-03] MEDS: SODIUM CHLORIDE 0.9% 1,000 ML IV SCH ×2 (05:29→16:46)
[2020-01-03] MEDS: MEROPENEM 500 MG in SODIUM CHLORIDE 0.9% 100 ML IV SCH (05:32)
[2020-01-03] MEDS: INSULIN LISPRO 100 UNITS/ML, PEN SQ-INSULIN SCH ×4 (07:43→20:59)
[2020-01-03] MEDS: TAMSULOSIN 0.4 MG CAP.ER.24H PO SCH (08:08)
[2020-01-03] MEDS: FLUOXETINE HCL 20 MG CAPSULE PO SCH (08:09)
[2020-01-03] MEDS: ASPIRIN/DIPYRIDAMOLE 25MG/200MG CAPSULE PO SCH ×2 (08:09→21:02)
[2020-01-03] MEDS: VORICONAZOLE 50 MG TABLET PO SCH ×2 (08:10→21:03)
[2020-01-03] MEDS: DOCUSATE 100 MG CAPSULE PO SCH ×2 (08:11→21:00)
[2020-01-03] MEDS ORDERED: DEXTROSE 4 GM TAB.CHEW PO PRN (14:30)
[2020-01-03] MEDS ORDERED: GLUCAGON 1 MG IM PRN (14:30)
[2020-01-03] MEDS ORDERED: DEXTROSE 50%, 50ML SYRINGE IVPush PRN (14:30)
[2020-01-03] MEDS: NICOTINE 21 MG/24 HR PATCH.TD24 TD SCH (17:04)
[2020-01-03] MEDS ORDERED: INSULIN GLARGINE 100 UNITS/ML, PEN SQ-INSULIN SCH (21:00)
[2020-01-03] MEDS: MAGNESIUM HYDROXIDE 8%, 30ML UDC PO SCH (21:00)
[2020-01-03] MEDS: OXYcodone/APAP 5/325MG TABLET PO PRN (21:01)
[2020-01-03] MEDS: ATORVASTATIN 20 MG TABLET PO SCH (21:02)
[2020-01-03] MEDS: SODIUM CHLORIDE FLUSH 10ML SYR IVF SCH (21:02)
[2020-01-04] MEDS: SODIUM CHLORIDE 0.9% 1,000 ML IV SCH (00:02)
[2020-01-04 07:29] VITALS: BP 157/73
[2020-01-04 07:57] LABS: MEAN CORPUSCULAR HEMOGLOBIN 30.1 pg (27.0-34.8); MEAN CORPUSCULAR HGB CONC 31.9 g/dL (32.4-35.8); MEAN PLATELET VOLUME 8.6 fL (7.4-10.4); PLATELET COUNT 342 x10^3/uL (130-400); RED BLOOD COUNT 3.45 x10^6/uL (3.82-5.3); RED CELL DISTRIBUTION WIDTH 16.3 % (9.6-15.2)
[2020-01-04] MEDS: INSULIN LISPRO 100 UNITS/ML, PEN SQ-INSULIN SCH ×4 (08:01→21:46)
[2020-01-04 08:08] LABS: ALANINE AMINOTRANSFERASE 15 U/L (12-78); ALBUMIN 2.4 g/dL (3.4-5.0); CREATININE 0.54 mg/dL (0.55-1.02)
[2020-01-04 08:10] LABS: ALKALINE PHOSPHATASE 63 U/L (45-117); BILIRUBIN,TOTAL 0.2 mg/dL (0.2-1.0)
[2020-01-04 08:22] LABS: ANION GAP 6 mmol/L (5-15); CHLORIDE 112 mmol/L (98-107)
[2020-01-04] MEDS: HEPARIN 5,000 UNITS/ML, 1ML SQ SCH ×2 (08:41→16:18)
[2020-01-04] MEDS: TAMSULOSIN 0.4 MG CAP.ER.24H PO SCH (08:41)
[2020-01-04] MEDS: VORICONAZOLE 50 MG TABLET PO SCH ×2 (08:41→21:48)
[2020-01-04] MEDS: ASPIRIN/DIPYRIDAMOLE 25MG/200MG CAPSULE PO SCH ×2 (08:41→21:48)
[2020-01-04] MEDS: FLUOXETINE HCL 20 MG CAPSULE PO SCH (08:41)
[2020-01-04] MEDS: LISINOPRIL 40 MG TABLET PO SCH (08:46)
[2020-01-04] MEDS: DOCUSATE 100 MG CAPSULE PO SCH ×2 (08:47→21:00)
[2020-01-04] MEDS: SODIUM CHLORIDE FLUSH 10ML SYR IVF SCH ×2 (08:47→21:45)
[2020-01-04 09:05] LABS: MD YES
[2020-01-04 09:07] LABS: <PLATELET ESTIMATE> ADEQUATE; <PLT MORPHOLOGY> NORMAL PLT MORPH; ANISOCYTOSIS 1+; LYMPH#(MANUAL) 1.09 x10^3/uL (1-3.4); LYMPHS% (MANUAL) 8 % (22-44); MONOS#(MANUAL) 0.82 x10^3/uL (0.3-2.7); MONOS% (MANUAL) 6 % (2-9); SEGS% (MANUAL) 86 % (42-75)
[2020-01-04] MEDS ORDERED: VORICONAZOLE 200 MG TABLET PO ONE ×2 (09:30→21:30)
[2020-01-04 14:07] VITALS: BP 173/69
[2020-01-04] MEDS: LABETALOL 5MG/ML, 20ML IVPush PRN ×2 (14:14→17:27)
[2020-01-04] MEDS: GABAPENTIN 100 MG CAPSULE PO PRN (14:14)
[2020-01-04] MEDS ORDERED: OMNIPAQUE 350 MG/ML, 100ML BOTTLE ONE (15:01)
[2020-01-04] MEDS: NICOTINE 21 MG/24 HR PATCH.TD24 TD SCH (16:21)
[2020-01-04 17:24] VITALS: BP 172/75
[2020-01-04 19:52] VITALS: BP 145/72
[2020-01-04] MEDS ORDERED: INSULIN GLARGINE 100 UNITS/ML, PEN SQ-INSULIN SCH ×2 (21:00)
[2020-01-04] MEDS: MAGNESIUM HYDROXIDE 8%, 30ML UDC PO SCH (21:00)
[2020-01-04] MEDS: OXYcodone/APAP 5/325MG TABLET PO PRN (21:49)
[2020-01-04] MEDS: ATORVASTATIN 20 MG TABLET PO SCH (21:56)
[2020-01-05 01:17] VITALS: BP 111/62
[2020-01-05] MEDS: HEPARIN 5,000 UNITS/ML, 1ML SQ SCH ×3 (01:19→17:13)
[2020-01-05] MEDS: CYCLOBENZAPRINE 10 MG TABLET PO PRN ×2 (06:21→17:14)
[2020-01-05 06:30] LABS: MEAN CORPUSCULAR HEMOGLOBIN 30.2 pg (27.0-34.8); MEAN CORPUSCULAR HGB CONC 31.7 g/dL (32.4-35.8); MEAN PLATELET VOLUME 9.2 fL (7.4-10.4); PLATELET COUNT 369 x10^3/uL (130-400); RED BLOOD COUNT 3.47 x10^6/uL (3.82-5.3); RED CELL DISTRIBUTION WIDTH 16.6 % (9.6-15.2)
[2020-01-05 06:41] VITALS: BP_SYST 134; BP_SYST 138; BP_DIAS 63; BP_DIAS 74
[2020-01-05] MEDS: INSULIN LISPRO 100 UNITS/ML, PEN SQ-INSULIN SCH ×4 (07:00→20:44)
[2020-01-05 07:17] LABS: BASOPHILS # (AUTO) 0.05 x10^3/uL (0-0.1); BASOPHILS % (AUTO) 0 % (0-1); EOSINOPHILS # (AUTO) 0.58 x10^3/uL (0-0.4); EOSINOPHILS % (AUTO) 5 % (1-7); LYMPHOCYTES # (AUTO) 2.21 x10^3/uL (1-3.4); LYMPHOCYTES % (AUTO) 19 % (22-44); MD SCAN; MONOCYTES % (AUTO) 4 % (2-9); NEUTROPHILS # (AUTO) 8.11 x10^3/uL (1.8-6.8); NEUTROPHILS % (AUTO) 71 % (42-75)
[2020-01-05] MEDS: DOCUSATE 100 MG CAPSULE PO SCH ×2 (09:00→20:43)
[2020-01-05 09:21] VITALS: BP 120/69
[2020-01-05] MEDS: TAMSULOSIN 0.4 MG CAP.ER.24H PO SCH (09:22)
[2020-01-05] MEDS: ASPIRIN/DIPYRIDAMOLE 25MG/200MG CAPSULE PO SCH ×2 (09:22→20:43)
[2020-01-05] MEDS: FLUOXETINE HCL 20 MG CAPSULE PO SCH (09:22)
[2020-01-05] MEDS: LISINOPRIL 40 MG TABLET PO SCH (09:22)
[2020-01-05] MEDS: VORICONAZOLE 200 MG TABLET PO SCH ×2 (09:22→20:43)
[2020-01-05] MEDS: SODIUM CHLORIDE FLUSH 10ML SYR IVF SCH ×2 (09:23→20:43)
[2020-01-05 13:07] VITALS: BP 132/76
[2020-01-05] MEDS: NICOTINE 21 MG/24 HR PATCH.TD24 TD SCH (16:30)
[2020-01-05 19:49] VITALS: BP 165/79
[2020-01-05] MEDS: ATORVASTATIN 20 MG TABLET PO SCH (20:43)
[2020-01-05] MEDS: MAGNESIUM HYDROXIDE 8%, 30ML UDC PO SCH (20:43)
[2020-01-05] MEDS: GABAPENTIN 100 MG CAPSULE PO PRN (20:43)
[2020-01-05] MEDS: INSULIN GLARGINE 100 UNITS/ML, PEN SQ-INSULIN SCH (20:45)
[2020-01-05] MEDS: DIPHENHYDRAMINE 25 MG CAPSULE PO PRN (22:27)
[2020-01-05 23:53] VITALS: BP 137/77
[2020-01-06] MEDS: HEPARIN 5,000 UNITS/ML, 1ML SQ SCH ×3 (00:01→17:20)
[2020-01-06 05:21] VITALS: BP 144/77
[2020-01-06 06:14] LABS: ALBUMIN 2.7 g/dL (3.4-5.0); ANION GAP 5 mmol/L (5-15); CALCIUM 9.4 mg/dL (8.5-10.1); CHLORIDE 107 mmol/L (98-107)
[2020-01-06 06:18] LABS: ALANINE AMINOTRANSFERASE 12 U/L (12-78); ALKALINE PHOSPHATASE 81 U/L (45-117); BILIRUBIN,TOTAL 0.2 mg/dL (0.2-1.0); CREATININE 0.69 mg/dL (0.55-1.02); TOTAL PROTEIN 6.8 g/dL (6.4-8.2)
[2020-01-06 06:21] LABS: BASOPHILS # (AUTO) 0.07 x10^3/uL (0-0.1); BASOPHILS % (AUTO) 1 % (0-1); EOSINOPHILS # (AUTO) 0.65 x10^3/uL (0-0.4); EOSINOPHILS % (AUTO) 6 % (1-7); LYMPHOCYTES # (AUTO) 2.71 x10^3/uL (1-3.4); LYMPHOCYTES % (AUTO) 23 % (22-44); MD NO; MEAN CORPUSCULAR HEMOGLOBIN 30.7 pg (27.0-34.8); MEAN CORPUSCULAR HGB CONC 32.7 g/dL (32.4-35.8); MEAN PLATELET VOLUME 9.2 fL (7.4-10.4); MONOCYTES # (AUTO) 0.72 x10^3/uL (0.2-0.8); MONOCYTES % (AUTO) 6 % (2-9); NEUTROPHILS # (AUTO) 7.46 x10^3/uL (1.8-6.8); NEUTROPHILS % (AUTO) 64 % (42-75); PLATELET COUNT 450 x10^3/uL (130-400); RED BLOOD COUNT 3.71 x10^6/uL (3.82-5.3); RED CELL DISTRIBUTION WIDTH 16.2 % (9.6-15.2)
[2020-01-06] MEDS: INSULIN LISPRO 100 UNITS/ML, PEN SQ-INSULIN SCH ×4 (07:00→20:24)
[2020-01-06 07:58] VITALS: BP 116/70
[2020-01-06] MEDS: FLUOXETINE HCL 20 MG CAPSULE PO SCH (08:09)
[2020-01-06] MEDS: ASPIRIN/DIPYRIDAMOLE 25MG/200MG CAPSULE PO SCH ×2 (08:09→20:00)
[2020-01-06] MEDS: SODIUM CHLORIDE FLUSH 10ML SYR IVF SCH ×2 (08:09→20:02)
[2020-01-06] MEDS: TAMSULOSIN 0.4 MG CAP.ER.24H PO SCH (08:10)
[2020-01-06] MEDS: LISINOPRIL 40 MG TABLET PO SCH (08:10)
[2020-01-06] MEDS: VORICONAZOLE 200 MG TABLET PO SCH ×2 (08:10→20:00)
[2020-01-06] MEDS: DOCUSATE 100 MG CAPSULE PO SCH ×2 (08:10→20:00)
[2020-01-06] MEDS ORDERED: MAGNESIUM CITRATE 300ML ORAL SOL PO ONE ×2 (10:30→17:30)
[2020-01-06] MEDS: ACETAMINOPHEN 325 MG TABLET PO PRN (11:47)
[2020-01-06] MEDS: CYCLOBENZAPRINE 10 MG TABLET PO PRN ×2 (11:47→19:59)
[2020-01-06] MEDS: ONDANSETRON 2MG/ML, 2ML IVPush PRN (12:03)
[2020-01-06 12:44] VITALS: BP 117/69
[2020-01-06] MEDS: NICOTINE 21 MG/24 HR PATCH.TD24 TD SCH (16:11)
[2020-01-06 17:18] VITALS: BP 137/74
[2020-01-06] MEDS: METOPROLOL TARTRATE 25 MG TAB PO SCH (17:21)
[2020-01-06] MEDS: OXYcodone/APAP 5/325MG TABLET PO PRN (17:27)
[2020-01-06] MEDS: ATORVASTATIN 20 MG TABLET PO SCH (20:00)
[2020-01-06] MEDS: MAGNESIUM HYDROXIDE 8%, 30ML UDC PO SCH (20:00)
[2020-01-06] MEDS: GABAPENTIN 100 MG CAPSULE PO PRN (20:17)
[2020-01-06] MEDS: INSULIN GLARGINE 100 UNITS/ML, PEN SQ-INSULIN SCH (20:24)
[2020-01-06 21:00] VITALS: BP 124/69
[2020-01-07] MEDS: OXYcodone/APAP 5/325MG TABLET PO PRN ×2 (00:01→21:38)
[2020-01-07 01:28] VITALS: BP 120/81
[2020-01-07 05:00] VITALS: BP 105/60
[2020-01-07] MEDS: METOPROLOL TARTRATE 25 MG TAB PO SCH ×2 (05:18→17:00)
[2020-01-07 06:35] VITALS: BP 98/57
[2020-01-07] MEDS: INSULIN LISPRO 100 UNITS/ML, PEN SQ-INSULIN SCH ×4 (07:00→21:00)
[2020-01-07] MEDS: HEPARIN 5,000 UNITS/ML, 1ML SQ SCH ×3 (08:03→16:59)
[2020-01-07] MEDS: DOCUSATE 100 MG CAPSULE PO SCH ×2 (08:03→21:00)
[2020-01-07] MEDS: FLUOXETINE HCL 20 MG CAPSULE PO SCH (08:03)
[2020-01-07] MEDS: ASPIRIN/DIPYRIDAMOLE 25MG/200MG CAPSULE PO SCH ×2 (08:04→21:38)
[2020-01-07] MEDS: LISINOPRIL 40 MG TABLET PO SCH (08:04)
[2020-01-07] MEDS: SODIUM CHLORIDE FLUSH 10ML SYR IVF SCH ×2 (08:04→21:00)
[2020-01-07] MEDS: TAMSULOSIN 0.4 MG CAP.ER.24H PO SCH (08:04)
[2020-01-07] MEDS ORDERED: LIDODERM REMOVE PATCH NOTE XX PRN (10:30)
[2020-01-07] MEDS: DIPHENHYDRAMINE 25 MG CAPSULE PO PRN (11:43)
[2020-01-07 13:08] VITALS: BP 102/64
[2020-01-07 14:34] LABS: BASOPHILS # (AUTO) 0.04 x10^3/uL (0-0.1); BASOPHILS % (AUTO) 0 % (0-1); EOSINOPHILS # (AUTO) 0.48 x10^3/uL (0-0.4); EOSINOPHILS % (AUTO) 4 % (1-7); LYMPHOCYTES % (AUTO) 33 % (22-44); MD NO; MEAN CORPUSCULAR HEMOGLOBIN 30.5 pg (27.0-34.8); MEAN CORPUSCULAR HGB CONC 32.6 g/dL (32.4-35.8); MEAN PLATELET VOLUME 8.3 fL (7.4-10.4); MONOCYTES # (AUTO) 0.87 x10^3/uL (0.2-0.8); MONOCYTES % (AUTO) 8 % (2-9); NEUTROPHILS # (AUTO) 5.88 x10^3/uL (1.8-6.8); NEUTROPHILS % (AUTO) 54 % (42-75); PLATELET COUNT 529 x10^3/uL (130-400); RED BLOOD COUNT 3.99 x10^6/uL (3.82-5.3); RED CELL DISTRIBUTION WIDTH 15.8 % (9.6-15.2)
[2020-01-07] MEDS: NICOTINE 21 MG/24 HR PATCH.TD24 TD SCH (16:30)
[2020-01-07 18:30] VITALS: BP 94/56
[2020-01-07] MEDS: INSULIN GLARGINE 100 UNITS/ML, PEN SQ-INSULIN SCH (21:00)
[2020-01-07] MEDS: MAGNESIUM HYDROXIDE 8%, 30ML UDC PO SCH (21:00)
[2020-01-07] MEDS: ATORVASTATIN 20 MG TABLET PO SCH (21:37)
[2020-01-07] MEDS: GABAPENTIN 100 MG CAPSULE PO PRN (21:37)
[2020-01-07] MEDS: LIDODERM 5% PATCH TD PRN (21:37)
[2020-01-07] MEDS: CYCLOBENZAPRINE 10 MG TABLET PO PRN (21:38)
[2020-01-08] MEDS: HEPARIN 5,000 UNITS/ML, 1ML SQ SCH ×3 (00:30→16:38)
[2020-01-08] MEDS: ONDANSETRON 2MG/ML, 2ML IVPush PRN (00:49)
[2020-01-08 01:22] VITALS: BP 110/64
[2020-01-08] MEDS: METOPROLOL TARTRATE 25 MG TAB PO SCH ×2 (05:05→18:00)
[2020-01-08] MEDS: OXYcodone/APAP 5/325MG TABLET PO PRN (05:06)
[2020-01-08] MEDS: GABAPENTIN 100 MG CAPSULE PO PRN (05:07)
[2020-01-08] MEDS: CYCLOBENZAPRINE 10 MG TABLET PO PRN (05:07)
[2020-01-08 07:25] VITALS: BP 88/59
[2020-01-08] MEDS: INSULIN LISPRO 100 UNITS/ML, PEN SQ-INSULIN SCH ×4 (08:51→21:20)
[2020-01-08] MEDS: TAMSULOSIN 0.4 MG CAP.ER.24H PO SCH (08:52)
[2020-01-08] MEDS: SODIUM CHLORIDE FLUSH 10ML SYR IVF SCH ×2 (08:52→21:16)
[2020-01-08] MEDS: FLUOXETINE HCL 20 MG CAPSULE PO SCH (08:52)
[2020-01-08] MEDS: ASPIRIN/DIPYRIDAMOLE 25MG/200MG CAPSULE PO SCH ×2 (08:52→21:16)
[2020-01-08] MEDS: DOCUSATE 100 MG CAPSULE PO SCH ×2 (08:53→21:00)
[2020-01-08] MEDS ORDERED: LISINOPRIL 20 MG TABLET PO SCH (09:00)
[2020-01-08 15:25] VITALS: BP 73/51
[2020-01-08] MEDS ORDERED: SODIUM CHLORIDE 0.9% 1,000ML IVBOLUS ONE (16:00)
[2020-01-08 16:26] LABS: BASOPHILS # (AUTO) 0.04 x10^3/uL (0-0.1); BASOPHILS % (AUTO) 0 % (0-1); EOSINOPHILS # (AUTO) 0.42 x10^3/uL (0-0.4); EOSINOPHILS % (AUTO) 3 % (1-7); LYMPHOCYTES # (AUTO) 2.66 x10^3/uL (1-3.4); LYMPHOCYTES % (AUTO) 17 % (22-44); MEAN CORPUSCULAR HEMOGLOBIN 30.3 pg (27.0-34.8); MEAN CORPUSCULAR HGB CONC 32.2 g/dL (32.4-35.8); MEAN PLATELET VOLUME 8.3 fL (7.4-10.4); MONOCYTES # (AUTO) 1.16 x10^3/uL (0.2-0.8); MONOCYTES % (AUTO) 7 % (2-9); NEUTROPHILS # (AUTO) 11.33 x10^3/uL (1.8-6.8); NEUTROPHILS % (AUTO) 73 % (42-75); PLATELET COUNT 522 x10^3/uL (130-400); RED BLOOD COUNT 3.74 x10^6/uL (3.82-5.3); RED CELL DISTRIBUTION WIDTH 16.1 % (9.6-15.2)
[2020-01-08 16:27] LABS: MD NO
[2020-01-08 16:29] LABS: ALANINE AMINOTRANSFERASE 16 U/L (12-78); ALBUMIN 2.6 g/dL (3.4-5.0); ANION GAP 4 mmol/L (5-15); CALCIUM 8.9 mg/dL (8.5-10.1); CHLORIDE 101 mmol/L (98-107); CREATININE 1.78 mg/dL (0.55-1.02)
[2020-01-08] MEDS: NICOTINE 21 MG/24 HR PATCH.TD24 TD SCH (16:30)
[2020-01-08 16:32] LABS: ALKALINE PHOSPHATASE 72 U/L (45-117); BILIRUBIN,TOTAL 0.1 mg/dL (0.2-1.0); TOTAL PROTEIN 6.4 g/dL (6.4-8.2)
[2020-01-08 17:15] VITALS: BP 88/54
[2020-01-08 18:33] VITALS: BP 91/56
[2020-01-08 20:59] VITALS: BP 89/54
[2020-01-08] MEDS: MAGNESIUM HYDROXIDE 8%, 30ML UDC PO SCH (21:00)
[2020-01-08] MEDS ORDERED: INSULIN GLARGINE 100 UNITS/ML, PEN SQ-INSULIN SCH (21:00)
[2020-01-08] MEDS: ATORVASTATIN 20 MG TABLET PO SCH (21:16)
[2020-01-08] MEDS: FLUCONAZOLE 200 MG TABLET PO SCH (22:24)
[2020-01-08 22:33] LABS: MICROSCOPIC INDICATED
[2020-01-09 00:04] VITALS: BP 92/53
[2020-01-09] MEDS: HEPARIN 5,000 UNITS/ML, 1ML SQ SCH ×3 (00:30→16:51)
[2020-01-09] MEDS: METOPROLOL TARTRATE 25 MG TAB PO SCH ×2 (05:39→16:52)
[2020-01-09] MEDS: INSULIN LISPRO 100 UNITS/ML, PEN SQ-INSULIN SCH ×4 (07:00→20:10)
[2020-01-09 07:12] VITALS: BP 128/77
[2020-01-09] MEDS: CYCLOBENZAPRINE 10 MG TABLET PO PRN (08:27)
[2020-01-09] MEDS: FLUOXETINE HCL 20 MG CAPSULE PO SCH (08:27)
[2020-01-09] MEDS: TAMSULOSIN 0.4 MG CAP.ER.24H PO SCH (08:27)
[2020-01-09] MEDS: FLUCONAZOLE 200 MG TABLET PO SCH (08:27)
[2020-01-09] MEDS: ASPIRIN/DIPYRIDAMOLE 25MG/200MG CAPSULE PO SCH ×2 (08:27→20:10)
[2020-01-09] MEDS: DOCUSATE 100 MG CAPSULE PO SCH ×2 (08:41→20:11)
[2020-01-09] MEDS: SODIUM CHLORIDE FLUSH 10ML SYR IVF SCH ×2 (08:52→20:11)
[2020-01-09 12:39] VITALS: BP 133/70
[2020-01-09] MEDS: NICOTINE 21 MG/24 HR PATCH.TD24 TD SCH (16:30)
[2020-01-09 19:23] VITALS: BP 152/64
[2020-01-09] MEDS: MAGNESIUM HYDROXIDE 8%, 30ML UDC PO SCH (20:09)
[2020-01-09] MEDS: ATORVASTATIN 20 MG TABLET PO SCH (20:09)
[2020-01-09] MEDS: OXYcodone/APAP 5/325MG TABLET PO PRN (20:14)
[2020-01-09] MEDS ORDERED: INSULIN GLARGINE 100 UNITS/ML, PEN SQ-INSULIN SCH (21:00)
[2020-01-10 00:09] VITALS: BP 130/81
[2020-01-10] MEDS: HEPARIN 5,000 UNITS/ML, 1ML SQ SCH ×3 (00:30→16:56)
[2020-01-10 02:18] VITALS: BP 121/76
[2020-01-10 05:40] VITALS: BP 158/79
[2020-01-10] MEDS: METOPROLOL TARTRATE 25 MG TAB PO SCH ×2 (05:41→16:53)
[2020-01-10 06:04] LABS: BASOPHILS # (AUTO) 0.06 x10^3/uL (0-0.1); BASOPHILS % (AUTO) 1 % (0-1); EOSINOPHILS % (AUTO) 5 % (1-7); LYMPHOCYTES # (AUTO) 2.88 x10^3/uL (1-3.4); LYMPHOCYTES % (AUTO) 22 % (22-44); MD NO; MEAN CORPUSCULAR HEMOGLOBIN 30.4 pg (27.0-34.8); MEAN CORPUSCULAR HGB CONC 32.3 g/dL (32.4-35.8); MEAN PLATELET VOLUME 8.3 fL (7.4-10.4); MONOCYTES # (AUTO) 1.39 x10^3/uL (0.2-0.8); MONOCYTES % (AUTO) 11 % (2-9); NEUTROPHILS # (AUTO) 8.02 x10^3/uL (1.8-6.8); NEUTROPHILS % (AUTO) 62 % (42-75); PLATELET COUNT 559 x10^3/uL (130-400); RED BLOOD COUNT 3.73 x10^6/uL (3.82-5.3); RED CELL DISTRIBUTION WIDTH 15.9 % (9.6-15.2)
[2020-01-10 06:18] LABS: CHLORIDE 105 mmol/L (98-107)
[2020-01-10 06:25] LABS: ALANINE AMINOTRANSFERASE 18 U/L (12-78); ALBUMIN 2.5 g/dL (3.4-5.0); ALKALINE PHOSPHATASE 92 U/L (45-117); ANION GAP 5 mmol/L (5-15); BILIRUBIN,TOTAL 0.2 mg/dL (0.2-1.0); CALCIUM 9.1 mg/dL (8.5-10.1); CREATININE 0.91 mg/dL (0.55-1.02); TOTAL PROTEIN 6.7 g/dL (6.4-8.2)
[2020-01-10 06:49] VITALS: BP 151/75
[2020-01-10] MEDS: INSULIN LISPRO 100 UNITS/ML, PEN SQ-INSULIN SCH ×4 (07:00→21:37)
[2020-01-10] MEDS: FLUOXETINE HCL 20 MG CAPSULE PO SCH (09:31)
[2020-01-10] MEDS: DOCUSATE 100 MG CAPSULE PO SCH ×2 (09:32→21:35)
[2020-01-10] MEDS: LISINOPRIL 20 MG TABLET PO SCH (09:32)
[2020-01-10] MEDS: FLUCONAZOLE 200 MG TABLET PO SCH (09:32)
[2020-01-10] MEDS: TAMSULOSIN 0.4 MG CAP.ER.24H PO SCH (09:32)
[2020-01-10] MEDS: ASPIRIN/DIPYRIDAMOLE 25MG/200MG CAPSULE PO SCH ×2 (09:32→21:35)
[2020-01-10] MEDS: SODIUM CHLORIDE FLUSH 10ML SYR IVF SCH ×2 (09:33→21:38)
[2020-01-10] MEDS: LIDODERM 5% PATCH TD PRN (09:38)
[2020-01-10] MEDS: CYCLOBENZAPRINE 10 MG TABLET PO PRN (10:37)
[2020-01-10 12:03] VITALS: BP 152/67
[2020-01-10] MEDS: OXYcodone/APAP 5/325MG TABLET PO PRN (12:48)
[2020-01-10] MEDS: NICOTINE 21 MG/24 HR PATCH.TD24 TD SCH (16:30)
[2020-01-10 19:15] VITALS: BP 146/62
[2020-01-10] MEDS: ATORVASTATIN 20 MG TABLET PO SCH (21:35)
[2020-01-10] MEDS: MAGNESIUM HYDROXIDE 8%, 30ML UDC PO SCH (21:35)
[2020-01-10] MEDS: INSULIN GLARGINE 100 UNITS/ML, PEN SQ-INSULIN SCH (21:36)
[2020-01-11 00:41] VITALS: BP 123/64
[2020-01-11] MEDS: HEPARIN 5,000 UNITS/ML, 1ML SQ SCH ×3 (00:51→17:01)
[2020-01-11] MEDS: OXYcodone/APAP 5/325MG TABLET PO PRN ×2 (04:28→15:06)
[2020-01-11] MEDS: DIPHENHYDRAMINE 25 MG CAPSULE PO PRN (04:28)
[2020-01-11 05:26] LABS: BASOPHILS # (AUTO) 0.07 x10^3/uL (0-0.1); BASOPHILS % (AUTO) 0 % (0-1); EOSINOPHILS # (AUTO) 0.62 x10^3/uL (0-0.4); EOSINOPHILS % (AUTO) 4 % (1-7); LYMPHOCYTES # (AUTO) 2.65 x10^3/uL (1-3.4); LYMPHOCYTES % (AUTO) 17 % (22-44); MD NO; MEAN CORPUSCULAR HEMOGLOBIN 30.7 pg (27.0-34.8); MEAN CORPUSCULAR HGB CONC 32.4 g/dL (32.4-35.8); MEAN PLATELET VOLUME 7.9 fL (7.4-10.4); MONOCYTES # (AUTO) 1.03 x10^3/uL (0.2-0.8); MONOCYTES % (AUTO) 7 % (2-9); NEUTROPHILS # (AUTO) 11.32 x10^3/uL (1.8-6.8); NEUTROPHILS % (AUTO) 72 % (42-75); PLATELET COUNT 632 x10^3/uL (130-400); RED BLOOD COUNT 3.79 x10^6/uL (3.82-5.3); RED CELL DISTRIBUTION WIDTH 15.5 % (9.6-15.2)
[2020-01-11 06:32] VITALS: BP 138/78
[2020-01-11] MEDS: METOPROLOL TARTRATE 25 MG TAB PO SCH ×2 (06:33→17:00)
[2020-01-11 07:25] VITALS: BP 120/72
[2020-01-11] MEDS: ASPIRIN/DIPYRIDAMOLE 25MG/200MG CAPSULE PO SCH ×2 (07:56→21:14)
[2020-01-11] MEDS: LISINOPRIL 20 MG TABLET PO SCH (07:56)
[2020-01-11] MEDS: DOCUSATE 100 MG CAPSULE PO SCH ×2 (07:56→21:14)
[2020-01-11] MEDS: TAMSULOSIN 0.4 MG CAP.ER.24H PO SCH (07:57)
[2020-01-11] MEDS: FLUOXETINE HCL 20 MG CAPSULE PO SCH (07:57)
[2020-01-11] MEDS: FLUCONAZOLE 200 MG TABLET PO SCH (07:57)
[2020-01-11] MEDS: INSULIN LISPRO 100 UNITS/ML, PEN SQ-INSULIN SCH ×4 (07:58→20:51)
[2020-01-11] MEDS: SODIUM CHLORIDE FLUSH 10ML SYR IVF SCH ×2 (08:00→21:14)
[2020-01-11 09:56] LABS: HCT (SEDRATE) 35.2 % (34.6-47.8)
[2020-01-11] MEDS: CYCLOBENZAPRINE 10 MG TABLET PO PRN (11:24)
[2020-01-11 15:09] VITALS: BP 146/78
[2020-01-11] MEDS: NICOTINE 21 MG/24 HR PATCH.TD24 TD SCH (16:30)
[2020-01-11 17:57] LABS: MICROSCOPIC AUTO
[2020-01-11 19:25] VITALS: BP 135/82
[2020-01-11] MEDS: ATORVASTATIN 20 MG TABLET PO SCH (21:14)
[2020-01-11] MEDS: MAGNESIUM HYDROXIDE 8%, 30ML UDC PO SCH (21:14)
[2020-01-11] MEDS: INSULIN GLARGINE 100 UNITS/ML, PEN SQ-INSULIN SCH (21:15)
[2020-01-12] MEDS: HEPARIN 5,000 UNITS/ML, 1ML SQ SCH ×3 (01:22→17:59)
[2020-01-12 01:56] VITALS: BP 89/58
[2020-01-12 05:28] VITALS: BP 91/61
[2020-01-12] MEDS: METOPROLOL TARTRATE 25 MG TAB PO SCH (05:51)
[2020-01-12 06:09] LABS: MEAN CORPUSCULAR HEMOGLOBIN 30.4 pg (27.0-34.8); MEAN CORPUSCULAR HGB CONC 32.3 g/dL (32.4-35.8); MEAN PLATELET VOLUME 7.8 fL (7.4-10.4); PLATELET COUNT 674 x10^3/uL (130-400); RED BLOOD COUNT 3.85 x10^6/uL (3.82-5.3); RED CELL DISTRIBUTION WIDTH 15.9 % (9.6-15.2)
[2020-01-12] MEDS: INSULIN LISPRO 100 UNITS/ML, PEN SQ-INSULIN SCH ×4 (06:45→20:24)
[2020-01-12 06:59] LABS: MD YES
[2020-01-12 07:00] VITALS: BP 103/70
[2020-01-12 07:01] LABS: EOS#(MANUAL) 0.72 x10^3/uL (0.0-0.4); EOS% (MANUAL) 4 % (1-7); LYMPH#(MANUAL) 3.96 x10^3/uL (1-3.4); LYMPHS% (MANUAL) 22 % (22-44); MONOS% (MANUAL) 5 % (2-9); REACTIVE LYMPHS # (MANUAL) 0.36 x10^3/uL (0-0); REACTIVE LYMPHS % (MANUAL) 2 % (0-0); SEG#(MANUAL) 12.06 x10^3/uL (1.8-6.8); SEGS% (MANUAL) 67 % (42-75)
[2020-01-12 07:03] LABS: <PLATELET ESTIMATE> INCREASED; ANISOCYTOSIS 1+
[2020-01-12 07:04] LABS: <PLT MORPHOLOGY> NORMAL PLT MORPH; TOXIC GRAN 1+
[2020-01-12] MEDS: CEFTRIAXONE PMX 2GM/50ML 50 ML IV SCH (08:57)
[2020-01-12] MEDS: ASPIRIN/DIPYRIDAMOLE 25MG/200MG CAPSULE PO SCH ×2 (08:58→20:23)
[2020-01-12] MEDS: TAMSULOSIN 0.4 MG CAP.ER.24H PO SCH (08:58)
[2020-01-12] MEDS: FLUCONAZOLE 200 MG TABLET PO SCH (08:58)
[2020-01-12] MEDS: FLUOXETINE HCL 20 MG CAPSULE PO SCH (08:59)
[2020-01-12] MEDS: DOCUSATE 100 MG CAPSULE PO SCH ×2 (08:59→20:15)
[2020-01-12] MEDS: SODIUM CHLORIDE 0.9% 1,000 ML IV SCH ×2 (09:02→20:19)
[2020-01-12] MEDS: SODIUM CHLORIDE FLUSH 10ML SYR IVF SCH ×2 (09:04→20:20)
[2020-01-12] MEDS: OXYcodone/APAP 5/325MG TABLET PO PRN ×3 (11:15→22:06)
[2020-01-12] MEDS: LIDODERM 5% PATCH TD PRN (12:00)
[2020-01-12] MEDS: CYCLOBENZAPRINE 10 MG TABLET PO PRN (12:16)
[2020-01-12 13:14] VITALS: BP 129/74
[2020-01-12] MEDS: NICOTINE 21 MG/24 HR PATCH.TD24 TD SCH (16:30)
[2020-01-12 18:36] VITALS: BP 118/70
[2020-01-12] MEDS: MAGNESIUM HYDROXIDE 8%, 30ML UDC PO SCH (20:16)
[2020-01-12] MEDS: ATORVASTATIN 20 MG TABLET PO SCH (20:16)
[2020-01-12] MEDS: INSULIN GLARGINE 100 UNITS/ML, PEN SQ-INSULIN SCH (20:24)
[2020-01-13 00:47] VITALS: BP 114/70
[2020-01-13] MEDS: HEPARIN 5,000 UNITS/ML, 1ML SQ SCH ×3 (00:49→16:30)
[2020-01-13] MEDS: CYCLOBENZAPRINE 10 MG TABLET PO PRN ×2 (03:14→17:01)
[2020-01-13] MEDS: SODIUM CHLORIDE 0.9% 1,000 ML IV SCH (05:00)
[2020-01-13 06:36] LABS: CHLORIDE 104 mmol/L (98-107)
[2020-01-13 06:37] LABS: MEAN CORPUSCULAR HEMOGLOBIN 30.8 pg (27.0-34.8); MEAN CORPUSCULAR HGB CONC 32.7 g/dL (32.4-35.8); MEAN PLATELET VOLUME 8.1 fL (7.4-10.4); PLATELET COUNT 567 x10^3/uL (130-400); RED BLOOD COUNT 3.27 x10^6/uL (3.82-5.3); RED CELL DISTRIBUTION WIDTH 15.8 % (9.6-15.2)
[2020-01-13 06:38] VITALS: BP 130/71
[2020-01-13 06:50] LABS: ALANINE AMINOTRANSFERASE 15 U/L (12-78); ALBUMIN 2.3 g/dL (3.4-5.0); ALKALINE PHOSPHATASE 90 U/L (45-117); ANION GAP 6 mmol/L (5-15); BILIRUBIN,TOTAL 0.4 mg/dL (0.2-1.0); CALCIUM 8.4 mg/dL (8.5-10.1); CREATININE 0.77 mg/dL (0.55-1.02); TOTAL PROTEIN 6.3 g/dL (6.4-8.2)
[2020-01-13 07:05] LABS: BASOPHILS # (AUTO) 0.04 x10^3/uL (0-0.1); BASOPHILS % (AUTO) 0 % (0-1); EOSINOPHILS % (AUTO) 3 % (1-7); LYMPHOCYTES # (AUTO) 2.75 x10^3/uL (1-3.4); LYMPHOCYTES % (AUTO) 21 % (22-44); MD SCAN; MONOCYTES # (AUTO) 0.73 x10^3/uL (0.2-0.8); MONOCYTES % (AUTO) 6 % (2-9); NEUTROPHILS # (AUTO) 9.41 x10^3/uL (1.8-6.8); NEUTROPHILS % (AUTO) 71 % (42-75)
[2020-01-13] MEDS: TAMSULOSIN 0.4 MG CAP.ER.24H PO SCH (08:21)
[2020-01-13] MEDS: ASPIRIN/DIPYRIDAMOLE 25MG/200MG CAPSULE PO SCH ×2 (08:21→20:47)
[2020-01-13] MEDS: FLUOXETINE HCL 20 MG CAPSULE PO SCH (08:21)
[2020-01-13] MEDS: FLUCONAZOLE 200 MG TABLET PO SCH (08:22)
[2020-01-13] MEDS: CEFTRIAXONE PMX 2GM/50ML 50 ML IV SCH (08:22)
[2020-01-13] MEDS: DOCUSATE 100 MG CAPSULE PO SCH ×2 (08:22→20:47)
[2020-01-13] MEDS: SODIUM CHLORIDE FLUSH 10ML SYR IVF SCH ×2 (08:23→20:49)
[2020-01-13] MEDS: INSULIN LISPRO 100 UNITS/ML, PEN SQ-INSULIN SCH ×4 (08:23→20:48)
[2020-01-13] MEDS: GABAPENTIN 100 MG CAPSULE PO PRN ×2 (08:36→17:01)
[2020-01-13] MEDS: ACETAMINOPHEN 325 MG TABLET PO PRN (08:39)
[2020-01-13] MEDS: MORPHINE SULFATE 4 MG/ML, 1ML IVPush PRN ×2 (10:51→20:48)
[2020-01-13] MEDS ORDERED: MAGNESIUM CITRATE 300ML ORAL SOL PO ONE ×2 (11:00→19:00)
[2020-01-13] MEDS: AMPICILLIN/SULBACTAM 1,500 MG in SODIUM CHLORIDE 0.9% 50 ML IV SCH ×3 (11:06→22:48)
[2020-01-13 12:13] VITALS: BP 147/63
[2020-01-13] MEDS: NICOTINE 21 MG/24 HR PATCH.TD24 TD SCH (16:30)
[2020-01-13 19:10] VITALS: BP 158/72
[2020-01-13] MEDS: ATORVASTATIN 20 MG TABLET PO SCH (20:47)
[2020-01-13] MEDS: MAGNESIUM HYDROXIDE 8%, 30ML UDC PO SCH (20:47)
[2020-01-13] MEDS ORDERED: INSULIN GLARGINE 100 UNITS/ML, PEN SQ-INSULIN SCH (21:00)
[2020-01-13] MEDS: DIPHENHYDRAMINE 25 MG CAPSULE PO PRN (22:49)
[2020-01-14] MEDS: HEPARIN 5,000 UNITS/ML, 1ML SQ SCH ×3 (00:53→16:30)
[2020-01-14 00:55] VITALS: BP 153/78
[2020-01-14] MEDS: ONDANSETRON 2MG/ML, 2ML IVPush PRN (02:11)
[2020-01-14 02:33] VITALS: BP 152/80
[2020-01-14] MEDS ORDERED: PROMETHAZINE 25 MG/ML, 1ML ONE (04:28)
[2020-01-14] MEDS ORDERED: PROMETHAZINE 25 MG/ML, 1ML IM PRN (04:30)
[2020-01-14] MEDS: AMPICILLIN/SULBACTAM 1,500 MG in SODIUM CHLORIDE 0.9% 50 ML IV SCH (05:01)
[2020-01-14 06:31] VITALS: BP 138/81
[2020-01-14 06:48] LABS: MEAN CORPUSCULAR HEMOGLOBIN 30.7 pg (27.0-34.8); MEAN CORPUSCULAR HGB CONC 32.9 g/dL (32.4-35.8); MEAN PLATELET VOLUME 7.8 fL (7.4-10.4); PLATELET COUNT 589 x10^3/uL (130-400); RED BLOOD COUNT 3.61 x10^6/uL (3.82-5.3); RED CELL DISTRIBUTION WIDTH 15.5 % (9.6-15.2)
[2020-01-14] MEDS: INSULIN LISPRO 100 UNITS/ML, PEN SQ-INSULIN SCH ×4 (07:00→20:44)
[2020-01-14 07:17] LABS: MD SCAN
[2020-01-14 07:21] LABS: BASOPHILS # (AUTO) 0.05 x10^3/uL (0-0.1); BASOPHILS % (AUTO) 0 % (0-1); EOSINOPHILS # (AUTO) 0.12 x10^3/uL (0-0.4); EOSINOPHILS % (AUTO) 1 % (1-7); LYMPHOCYTES # (AUTO) 1.38 x10^3/uL (1-3.4); LYMPHOCYTES % (AUTO) 8 % (22-44); MONOCYTES # (AUTO) 0.46 x10^3/uL (0.2-0.8); MONOCYTES % (AUTO) 3 % (2-9); NEUTROPHILS # (AUTO) 15.67 x10^3/uL (1.8-6.8); NEUTROPHILS % (AUTO) 89 % (42-75)
[2020-01-14] MEDS: SODIUM CHLORIDE FLUSH 10ML SYR IVF SCH ×2 (09:00→20:35)
[2020-01-14] MEDS: OXYcodone/APAP 5/325MG TABLET PO PRN (09:06)
[2020-01-14] MEDS: TAMSULOSIN 0.4 MG CAP.ER.24H PO SCH (09:07)
[2020-01-14] MEDS: FLUOXETINE HCL 20 MG CAPSULE PO SCH (09:07)
[2020-01-14] MEDS: ASPIRIN/DIPYRIDAMOLE 25MG/200MG CAPSULE PO SCH ×2 (09:07→20:35)
[2020-01-14] MEDS: FLUCONAZOLE 200 MG TABLET PO SCH (09:07)
[2020-01-14] MEDS: DOCUSATE 100 MG CAPSULE PO SCH ×2 (09:07→20:35)
[2020-01-14] MEDS: AMPICILLIN 500MG CAPSULE PO SCH ×2 (12:00→18:06)
[2020-01-14 12:49] VITALS: BP 121/75
[2020-01-14] MEDS: NICOTINE 21 MG/24 HR PATCH.TD24 TD SCH (16:30)
[2020-01-14] MEDS: METOPROLOL TARTRATE 50 MG TAB PO SCH (18:07)
[2020-01-14 20:00] VITALS: BP 119/76
[2020-01-14] MEDS: MAGNESIUM HYDROXIDE 8%, 30ML UDC PO SCH (20:34)
[2020-01-14] MEDS: ATORVASTATIN 20 MG TABLET PO SCH (20:35)
[2020-01-14] MEDS: MORPHINE SULFATE 4 MG/ML, 1ML IVPush PRN (20:41)
[2020-01-14] MEDS: INSULIN GLARGINE 100 UNITS/ML, PEN SQ-INSULIN SCH (20:46)
[2020-01-15] MEDS: HEPARIN 5,000 UNITS/ML, 1ML SQ SCH ×3 (00:08→16:26)
[2020-01-15] MEDS: AMPICILLIN 500MG CAPSULE PO SCH ×4 (00:08→17:52)
[2020-01-15 01:02] VITALS: BP 130/77
[2020-01-15] MEDS: METOPROLOL TARTRATE 50 MG TAB PO SCH ×2 (05:38→17:52)
[2020-01-15] MEDS: OXYcodone/APAP 5/325MG TABLET PO PRN ×3 (05:41→20:42)
[2020-01-15 05:58] LABS: BASOPHILS # (AUTO) 0.03 x10^3/uL (0-0.1); BASOPHILS % (AUTO) 0 % (0-1); EOSINOPHILS # (AUTO) 0.24 x10^3/uL (0-0.4); EOSINOPHILS % (AUTO) 2 % (1-7); LYMPHOCYTES # (AUTO) 2.85 x10^3/uL (1-3.4); LYMPHOCYTES % (AUTO) 20 % (22-44); MD NO; MEAN CORPUSCULAR HEMOGLOBIN 30.4 pg (27.0-34.8); MEAN CORPUSCULAR HGB CONC 32.6 g/dL (32.4-35.8); MEAN PLATELET VOLUME 7.8 fL (7.4-10.4); MONOCYTES # (AUTO) 0.82 x10^3/uL (0.2-0.8); MONOCYTES % (AUTO) 6 % (2-9); NEUTROPHILS % (AUTO) 73 % (42-75); PLATELET COUNT 547 x10^3/uL (130-400); RED BLOOD COUNT 3.45 x10^6/uL (3.82-5.3)
[2020-01-15] MEDS: MORPHINE SULFATE 4 MG/ML, 1ML IVPush PRN (06:37)
[2020-01-15 06:50] VITALS: BP 122/75
[2020-01-15] MEDS: INSULIN LISPRO 100 UNITS/ML, PEN SQ-INSULIN SCH ×4 (07:37→20:43)
[2020-01-15] MEDS: FLUOXETINE HCL 20 MG CAPSULE PO SCH (07:52)
[2020-01-15] MEDS: FLUCONAZOLE 200 MG TABLET PO SCH (07:52)
[2020-01-15] MEDS: DOCUSATE 100 MG CAPSULE PO SCH ×2 (07:52→20:41)
[2020-01-15] MEDS: ASPIRIN/DIPYRIDAMOLE 25MG/200MG CAPSULE PO SCH ×2 (07:52→20:41)
[2020-01-15] MEDS: TAMSULOSIN 0.4 MG CAP.ER.24H PO SCH (07:53)
[2020-01-15] MEDS: SODIUM CHLORIDE FLUSH 10ML SYR IVF SCH ×2 (07:54→20:44)
[2020-01-15] MEDS ORDERED: PINK LADY ENEMA 490 ML BOTTLE PR ONE (09:00)
[2020-01-15] MEDS: LIDODERM 5% PATCH TD PRN (09:27)
[2020-01-15] MEDS ORDERED: FLUC200T PO ×2 (10:59)
[2020-01-15] MEDS ORDERED: Lidoderm Remove Patch XX (10:59)
[2020-01-15] MEDS ORDERED: CYCL-259 PO (10:59)
[2020-01-15] MEDS ORDERED: INSU100I13 SQ-INSULIN ×2 (10:59)
[2020-01-15] MEDS ORDERED: PHEN-582 PO (10:59)
[2020-01-15] MEDS ORDERED: INSU100I11 SQ-INSULIN (10:59)
[2020-01-15] MEDS ORDERED: AMPI500C2 PO ×2 (10:59)
[2020-01-15] MEDS ORDERED: METO50TA82 PO ×2 (10:59)
[2020-01-15] MEDS: PHENAZOPYRIDINE 100 MG TABLET PO SCH ×3 (11:45→20:41)
[2020-01-15 12:32] VITALS: BP 145/70
[2020-01-15] MEDS: NICOTINE 21 MG/24 HR PATCH.TD24 TD SCH (16:27)
[2020-01-15 17:51] VITALS: BP 121/73
[2020-01-15 20:33] VITALS: BP 121/76
[2020-01-15] MEDS: MAGNESIUM HYDROXIDE 8%, 30ML UDC PO SCH (20:41)
[2020-01-15] MEDS: ATORVASTATIN 20 MG TABLET PO SCH (20:41)
[2020-01-15] MEDS: INSULIN GLARGINE 100 UNITS/ML, PEN SQ-INSULIN SCH (20:42)
[2020-01-16] MEDS: HEPARIN 5,000 UNITS/ML, 1ML SQ SCH ×3 (00:27→17:20)
[2020-01-16] MEDS: AMPICILLIN 500MG CAPSULE PO SCH ×5 (00:28→23:47)
[2020-01-16 00:56] VITALS: BP 127/75
[2020-01-16] MEDS: METOPROLOL TARTRATE 50 MG TAB PO SCH ×2 (05:35→17:29)
[2020-01-16 05:49] LABS: BASOPHILS # (AUTO) 0.06 x10^3/uL (0-0.1); BASOPHILS % (AUTO) 1 % (0-1); EOSINOPHILS # (AUTO) 0.48 x10^3/uL (0-0.4); EOSINOPHILS % (AUTO) 5 % (1-7); LYMPHOCYTES # (AUTO) 3.63 x10^3/uL (1-3.4); LYMPHOCYTES % (AUTO) 35 % (22-44); MD NO; MEAN CORPUSCULAR HEMOGLOBIN 31.1 pg (27.0-34.8); MEAN CORPUSCULAR HGB CONC 33.2 g/dL (32.4-35.8); MEAN PLATELET VOLUME 7.9 fL (7.4-10.4); MONOCYTES # (AUTO) 0.75 x10^3/uL (0.2-0.8); MONOCYTES % (AUTO) 7 % (2-9); NEUTROPHILS # (AUTO) 5.34 x10^3/uL (1.8-6.8); NEUTROPHILS % (AUTO) 52 % (42-75); PLATELET COUNT 521 x10^3/uL (130-400); RED BLOOD COUNT 3.39 x10^6/uL (3.82-5.3); RED CELL DISTRIBUTION WIDTH 15.7 % (9.6-15.2)
[2020-01-16 07:40] VITALS: BP 144/79
[2020-01-16] MEDS: INSULIN LISPRO 100 UNITS/ML, PEN SQ-INSULIN SCH ×4 (07:56→20:51)
[2020-01-16] MEDS: OXYcodone/APAP 5/325MG TABLET PO PRN ×2 (07:57→23:47)
[2020-01-16] MEDS: SODIUM CHLORIDE FLUSH 10ML SYR IVF SCH ×2 (09:00→19:50)
[2020-01-16] MEDS: LIDODERM REMOVE PATCH NOTE XX SCH (09:00)
[2020-01-16] MEDS: FLUOXETINE HCL 20 MG CAPSULE PO SCH (09:10)
[2020-01-16] MEDS: DOCUSATE 100 MG CAPSULE PO SCH ×2 (09:10→19:49)
[2020-01-16] MEDS: ASPIRIN/DIPYRIDAMOLE 25MG/200MG CAPSULE PO SCH ×2 (09:10→19:50)
[2020-01-16] MEDS: FLUCONAZOLE 200 MG TABLET PO SCH (09:11)
[2020-01-16] MEDS: PHENAZOPYRIDINE 100 MG TABLET PO SCH ×3 (09:19→19:49)
[2020-01-16] MEDS: TAMSULOSIN 0.4 MG CAP.ER.24H PO SCH (09:19)
[2020-01-16] MEDS ORDERED: POLYETHYLENE GLYCOL 17 GM PACKET NG ONE (09:30)
[2020-01-16] MEDS: LISINOPRIL 10 MG TABLET PO SCH (11:08)
[2020-01-16 12:28] VITALS: BP 124/69
[2020-01-16] MEDS: NICOTINE 21 MG/24 HR PATCH.TD24 TD SCH (16:30)
[2020-01-16 19:42] VITALS: BP 109/60
[2020-01-16] MEDS: ATORVASTATIN 20 MG TABLET PO SCH (19:50)
[2020-01-16] MEDS: INSULIN GLARGINE 100 UNITS/ML, PEN SQ-INSULIN SCH (19:51)
[2020-01-16] MEDS: MAGNESIUM HYDROXIDE 8%, 30ML UDC PO SCH (19:51)
[2020-01-16] MEDS: LIDODERM 5% PATCH TD PRN (20:51)
[2020-01-17 00:01] VITALS: BP 113/72
[2020-01-17] MEDS: HEPARIN 5,000 UNITS/ML, 1ML SQ SCH ×3 (00:38→19:12)
[2020-01-17 03:25] LABS: BASOPHILS # (AUTO) 0.04 x10^3/uL (0-0.1); BASOPHILS % (AUTO) 0 % (0-1); EOSINOPHILS # (AUTO) 0.43 x10^3/uL (0-0.4); EOSINOPHILS % (AUTO) 5 % (1-7); LYMPHOCYTES # (AUTO) 1.81 x10^3/uL (1-3.4); LYMPHOCYTES % (AUTO) 19 % (22-44); MD NO; MEAN CORPUSCULAR HEMOGLOBIN 30.1 pg (27.0-34.8); MEAN CORPUSCULAR HGB CONC 31.5 g/dL (32.4-35.8); MEAN PLATELET VOLUME 7.8 fL (7.4-10.4); MONOCYTES # (AUTO) 0.77 x10^3/uL (0.2-0.8); MONOCYTES % (AUTO) 8 % (2-9); NEUTROPHILS # (AUTO) 6.26 x10^3/uL (1.8-6.8); NEUTROPHILS % (AUTO) 67 % (42-75); PLATELET COUNT 513 x10^3/uL (130-400); RED BLOOD COUNT 3.41 x10^6/uL (3.82-5.3); RED CELL DISTRIBUTION WIDTH 15.9 % (9.6-15.2)
[2020-01-17 05:33] VITALS: BP 113/71
[2020-01-17] MEDS: METOPROLOL TARTRATE 50 MG TAB PO SCH ×2 (05:36→17:52)
[2020-01-17] MEDS: AMPICILLIN 500MG CAPSULE PO SCH ×4 (05:36→23:37)
[2020-01-17] MEDS: INSULIN LISPRO 100 UNITS/ML, PEN SQ-INSULIN SCH ×4 (07:00→20:55)
[2020-01-17] MEDS: LIDODERM REMOVE PATCH NOTE XX SCH (09:00)
[2020-01-17] MEDS: SODIUM CHLORIDE FLUSH 10ML SYR IVF SCH ×2 (09:00→20:56)
[2020-01-17] MEDS: LISINOPRIL 10 MG TABLET PO SCH (09:00)
[2020-01-17 09:04] VITALS: BP 124/71
[2020-01-17] MEDS ORDERED: MAGNESIUM CITRATE 300ML ORAL SOL PO ONE (09:30)
[2020-01-17] MEDS: TAMSULOSIN 0.4 MG CAP.ER.24H PO SCH (10:28)
[2020-01-17] MEDS: DOCUSATE 100 MG CAPSULE PO SCH ×2 (10:28→20:54)
[2020-01-17] MEDS: FLUOXETINE HCL 20 MG CAPSULE PO SCH (10:28)
[2020-01-17] MEDS: ASPIRIN/DIPYRIDAMOLE 25MG/200MG CAPSULE PO SCH ×2 (10:28→20:54)
[2020-01-17] MEDS: PHENAZOPYRIDINE 100 MG TABLET PO SCH ×3 (10:28→20:54)
[2020-01-17] MEDS: FLUCONAZOLE 200 MG TABLET PO SCH (10:29)
[2020-01-17 12:47] VITALS: BP 109/67
[2020-01-17] MEDS ORDERED: BISACODYL 10 MG SUPP ONE (14:20)
[2020-01-17] MEDS ORDERED: BISACODYL 10 MG SUPP PR PRN (14:30)
[2020-01-17] MEDS: NICOTINE 21 MG/24 HR PATCH.TD24 TD SCH (16:30)
[2020-01-17 17:50] VITALS: BP 116/72
[2020-01-17 20:15] VITALS: BP 132/69
[2020-01-17] MEDS: MAGNESIUM HYDROXIDE 8%, 30ML UDC PO SCH (20:54)
[2020-01-17] MEDS: ATORVASTATIN 20 MG TABLET PO SCH (20:54)
[2020-01-17] MEDS: INSULIN GLARGINE 100 UNITS/ML, PEN SQ-INSULIN SCH (20:55)
[2020-01-17] MEDS: OXYcodone/APAP 5/325MG TABLET PO PRN (23:37)
[2020-01-18 02:28] VITALS: BP 100/61
[2020-01-18] MEDS: HEPARIN 5,000 UNITS/ML, 1ML SQ SCH ×3 (04:03→17:33)
[2020-01-18 05:38] VITALS: BP 89/54
[2020-01-18] MEDS: METOPROLOL TARTRATE 50 MG TAB PO SCH ×2 (05:38→17:32)
[2020-01-18] MEDS: AMPICILLIN 500MG CAPSULE PO SCH ×4 (05:39→23:37)
[2020-01-18 05:56] LABS: BASOPHILS # (AUTO) 0.15 x10^3/uL (0-0.1); BASOPHILS % (AUTO) 2 % (0-1); EOSINOPHILS # (AUTO) 0.34 x10^3/uL (0-0.4); EOSINOPHILS % (AUTO) 4 % (1-7); LYMPHOCYTES # (AUTO) 2.43 x10^3/uL (1-3.4); LYMPHOCYTES % (AUTO) 25 % (22-44); MD NO; MEAN CORPUSCULAR HEMOGLOBIN 30.3 pg (27.0-34.8); MEAN CORPUSCULAR HGB CONC 32.4 g/dL (32.4-35.8); MEAN PLATELET VOLUME 8.1 fL (7.4-10.4); MONOCYTES # (AUTO) 0.93 x10^3/uL (0.2-0.8); MONOCYTES % (AUTO) 10 % (2-9); NEUTROPHILS # (AUTO) 5.89 x10^3/uL (1.8-6.8); NEUTROPHILS % (AUTO) 61 % (42-75); PLATELET COUNT 489 x10^3/uL (130-400); RED BLOOD COUNT 3.44 x10^6/uL (3.82-5.3); RED CELL DISTRIBUTION WIDTH 15.9 % (9.6-15.2)
[2020-01-18 05:57] LABS: HCT (SEDRATE) 32.3 % (34.6-47.8)
[2020-01-18 06:06] LABS: ALANINE AMINOTRANSFERASE 23 U/L (12-78); ALBUMIN 2.3 g/dL (3.4-5.0); ANION GAP 5 mmol/L (5-15); CALCIUM 8.6 mg/dL (8.5-10.1); CHLORIDE 101 mmol/L (98-107); CREATININE 0.68 mg/dL (0.55-1.02)
[2020-01-18 06:12] LABS: ALKALINE PHOSPHATASE 98 U/L (45-117); BILIRUBIN,TOTAL 0.1 mg/dL (0.2-1.0); C-REACTIVE PROTEIN, QUANT 0.95 mg/dL (0.02-0.49); TOTAL PROTEIN 6.4 g/dL (6.4-8.2)
[2020-01-18 07:30] VITALS: BP 151/68
[2020-01-18] MEDS: INSULIN LISPRO 100 UNITS/ML, PEN SQ-INSULIN SCH ×4 (07:42→21:44)
[2020-01-18] MEDS: PHENAZOPYRIDINE 100 MG TABLET PO SCH ×3 (08:35→21:14)
[2020-01-18] MEDS: LISINOPRIL 10 MG TABLET PO SCH (08:35)
[2020-01-18] MEDS: SODIUM CHLORIDE FLUSH 10ML SYR IVF SCH ×2 (08:35→21:14)
[2020-01-18] MEDS: TAMSULOSIN 0.4 MG CAP.ER.24H PO SCH (08:35)
[2020-01-18] MEDS: DOCUSATE 100 MG CAPSULE PO SCH ×2 (08:35→21:15)
[2020-01-18] MEDS: ASPIRIN/DIPYRIDAMOLE 25MG/200MG CAPSULE PO SCH ×2 (08:35→21:14)
[2020-01-18] MEDS: FLUOXETINE HCL 20 MG CAPSULE PO SCH (08:36)
[2020-01-18] MEDS: LIDODERM REMOVE PATCH NOTE XX SCH (08:36)
[2020-01-18] MEDS: FLUCONAZOLE 200 MG TABLET PO SCH (08:36)
[2020-01-18] MEDS ORDERED: INSU100I13 SQ-INSULIN ×2 (10:55)
[2020-01-18] MEDS ORDERED: AMPI500C2 PO (10:55)
[2020-01-18] MEDS ORDERED: LISI-167 PO (10:55)
[2020-01-18] MEDS ORDERED: METO50TA82 PO (10:55)
[2020-01-18] MEDS ORDERED: FLUC200T PO (10:55)
[2020-01-18] MEDS ORDERED: OXYcodone/APAP 5/325MG PO (11:03)
[2020-01-18] MEDS: CYCLOBENZAPRINE 10 MG TABLET PO PRN ×2 (11:16→23:49)
[2020-01-18 12:10] VITALS: BP 146/79
[2020-01-18] MEDS: NICOTINE 21 MG/24 HR PATCH.TD24 TD SCH (16:01)
[2020-01-18 20:24] VITALS: BP 150/67
[2020-01-18] MEDS ORDERED: INSULIN GLARGINE 100 UNITS/ML, PEN SQ-INSULIN SCH (21:00)
[2020-01-18] MEDS: ATORVASTATIN 20 MG TABLET PO SCH (21:14)
[2020-01-18] MEDS: MAGNESIUM HYDROXIDE 8%, 30ML UDC PO SCH (21:14)
[2020-01-18] MEDS: OXYcodone/APAP 5/325MG TABLET PO PRN (22:50)
[2020-01-19 01:31] VITALS: BP 142/81
[2020-01-19] MEDS: HEPARIN 5,000 UNITS/ML, 1ML SQ SCH ×2 (01:55→09:25)
[2020-01-19] MEDS: LIDODERM 5% PATCH TD PRN (01:56)
[2020-01-19] MEDS: OXYcodone/APAP 5/325MG TABLET PO PRN (02:02)
[2020-01-19] MEDS: DIPHENHYDRAMINE 25 MG CAPSULE PO PRN (02:06)
[2020-01-19] MEDS: METOPROLOL TARTRATE 50 MG TAB PO SCH (05:37)
[2020-01-19] MEDS: AMPICILLIN 500MG CAPSULE PO SCH ×2 (05:37→12:15)
[2020-01-19] MEDS: INSULIN LISPRO 100 UNITS/ML, PEN SQ-INSULIN SCH ×2 (08:30→12:15)
[2020-01-19] MEDS: FLUOXETINE HCL 20 MG CAPSULE PO SCH (08:35)
[2020-01-19] MEDS: DOCUSATE 100 MG CAPSULE PO SCH (08:35)
[2020-01-19] MEDS: ASPIRIN/DIPYRIDAMOLE 25MG/200MG CAPSULE PO SCH (08:35)
[2020-01-19] MEDS: SODIUM CHLORIDE FLUSH 10ML SYR IVF SCH (08:35)
[2020-01-19] MEDS: TAMSULOSIN 0.4 MG CAP.ER.24H PO SCH (08:35)
[2020-01-19] MEDS: LISINOPRIL 10 MG TABLET PO SCH (08:35)
[2020-01-19] MEDS: PHENAZOPYRIDINE 100 MG TABLET PO SCH (08:35)
[2020-01-19 08:57] VITALS: BP 136/74
[2020-01-19] MEDS ORDERED: LISINOPRIL 10 MG TABLET PO ONE (09:00)
[2020-01-19] MEDS ORDERED: FLUCONAZOLE 100 MG TABLET ONE (09:21)
[2020-01-19] MEDS: FLUCONAZOLE 200 MG TABLET PO SCH (09:25)
[2020-01-19] MEDS ORDERED: INSU100I13 SQ-INSULIN (11:16)
[2020-01-19] MEDS ORDERED: OXYcodone/APAP 5/325MG PO (11:16)
[2020-01-19] MEDS: GABAPENTIN 100 MG CAPSULE PO PRN (12:22)
[2020-01-19] MEDS ORDERED: INSULIN GLARGINE 100 UNITS/ML, PEN SQ-INSULIN SCH (21:00)
[2020-01-20] MEDS ORDERED: LISINOPRIL 20 MG TABLET PO SCH (09:00)
== END 2020-01-19 12:53 | DRG 689 ==
LOC: ED 09:02 → 3N 09:24 → ED 09:24 → 3N 10:47 → 4WST 01-02 13:47
PROVIDERS: ADMIT Internal Medicine; ATTEND Internal Medicine
PROC: 0T9B30Z Drainage of Bladder with Drainage Device, Percutaneous Approach (ICD-10-PCS; principal; 2019-12-28)
DX: N12 Tubulo-interstitial nephritis, not specified as acute or chronic (principal); A41.9 Sepsis, unspecified organism; Z16.12 Extended spectrum beta lactamase (ESBL) resistance; I69.354 Hemiplegia and hemiparesis following cerebral infarction affecting left non-dominant side; N17.0 Acute kidney failure with tubular necrosis; I95.9 Hypotension, unspecified; B96.20 Unspecified Escherichia coli [E. coli] as the cause of diseases classified elsewhere; E27.9 Disorder of adrenal gland, unspecified; I12.9 Hypertensive chronic kidney disease with stage 1 through stage 4 chronic kidney disease, or unspecified chronic kidney disease; N18.2 Chronic kidney disease, stage 2 (mild); G35 Multiple sclerosis; I73.9 Peripheral vascular disease, unspecified; D72.829 Elevated white blood cell count, unspecified; K62.89 Other specified diseases of anus and rectum; B95.2 Enterococcus as the cause of diseases classified elsewhere; E11.649 Type 2 diabetes mellitus with hypoglycemia without coma; F17.210 Nicotine dependence, cigarettes, uncomplicated; Z20.828 Contact with and (suspected) exposure to other viral communicable diseases; K59.00 Constipation, unspecified; R62.7 Adult failure to thrive; T83.031A Leakage of indwelling urethral catheter, initial encounter; Y73.8 Miscellaneous gastroenterology and urology devices associated with adverse incidents, not elsewhere classified; F39 Unspecified mood [affective] disorder; Z79.4 Long term (current) use of insulin; Z87.440 Personal history of urinary (tract) infections; Z79.84 Long term (current) use of oral hypoglycemic drugs; Z79.899 Other long term (current) drug therapy; Z90.49 Acquired absence of other specified parts of digestive tract; Z95.820 Peripheral vascular angioplasty status with implants and grafts; Z88.8 Allergy status to other drugs, medicaments and biological substances
CPT/HCPCS: 36415; 71045; 72132; 74177; 76770; 80048; 80053; 81001; 82040; 82962; 83605; 84145; 85025; 85651; 86140; 87040; 87077; 87086; 87106; 87186; 87635; 96374; 96375; G0378; J0696; J1335; J1644; J2185; J2248; J2405; J2550; Q9967; J0295; J1815; J2270; J7030; J7040; Q0163

== ENCOUNTER 2020-02-12 04:21 | Emergency (ER) | payer MEDICARE ==
[~2020-02-12] VITALS: Ht 162.6 cm; Wt 59.0 kg
[~2020-02-12 04:21] MED LIST changes: +AMPI500C2 PO; +CHLO25TA PO; +CYCL-259 PO; +LISI40TA PO; +Lidoderm Remove Patch XX; +MAGN400O7 PO; +METO50TA82 PO; +OXYcodone/APAP 5/325MG PO; +PHEN-582 PO; +TAMS-11 PO; +VORI50TA PO
--- NOTE | 2020-02-12 04:25 | NUR ---
SANJEEV FROM HOME FOR LOWER BACK PAIN AND "CHILLS 30 MIN SULPHATE TESTER." PT WITH HODGSON CATHETER X 3-4 MONTHS PER PT "DUE TO MS FLARE UP AND NOT BEING ABLE TO CONTROL BLADDER". PT STATES SHE WAS SUPPOSED TO FOLLOW UP WITH A UROLOGIST BUT WAS UNABLE TO GET AN APPT.
--- NOTE | 2020-02-12 04:34 | NUR ---
1800 ML URINE EMPTIED FROM CATHETER UPON ARRIVAL
[2020-02-12] MEDS ORDERED: SODIUM CHLORIDE 0.9% 1,000 ML IV ONE (04:44)
[2020-02-12] MEDS ORDERED: ONDANSETRON 2MG/ML, 2ML ONE (04:46)
[2020-02-12] MEDS ORDERED: MORPHINE SULFATE 4 MG/ML, 1ML ONE (04:47)
[2020-02-12] MEDS ORDERED: MORPHINE SULFATE 4 MG/ML, 1ML IVPush PRN (05:00)
[2020-02-12] MEDS ORDERED: SODIUM CHLORIDE 0.9% 1,000ML IVBOLUS ONE (05:00)
[2020-02-12] MEDS ORDERED: ONDANSETRON 2MG/ML, 2ML IVPush ONE (05:00)
[2020-02-12 05:16] LABS: BASOPHILS # (AUTO) 0.03 x10^3/uL (0-0.1); BASOPHILS % (AUTO) 0 % (0-1); EOSINOPHILS # (AUTO) 0.07 x10^3/uL (0-0.4); EOSINOPHILS % (AUTO) 1 % (1-7); LYMPHOCYTES # (AUTO) 2.17 x10^3/uL (1-3.4); LYMPHOCYTES % (AUTO) 19 % (22-44); MD NO; MEAN CORPUSCULAR HEMOGLOBIN 31.2 pg (27.0-34.8); MEAN CORPUSCULAR HGB CONC 32.9 g/dL (32.4-35.8); MEAN CORPUSCULAR VOLUME 94.9 fL (80-100); MEAN PLATELET VOLUME 8.1 fL (7.4-10.4); MONOCYTES # (AUTO) 0.71 x10^3/uL (0.2-0.8); MONOCYTES % (AUTO) 6 % (2-9); NEUTROPHILS # (AUTO) 8.43 x10^3/uL (1.8-6.8); NEUTROPHILS % (AUTO) 74 % (42-75); PLATELET COUNT 390 x10^3/uL (130-400); RED BLOOD COUNT 3.75 x10^6/uL (3.82-5.3)
[2020-02-12 05:20] LABS: ALANINE AMINOTRANSFERASE 18 U/L (12-78); ALBUMIN 3.1 g/dL (3.4-5.0); ANION GAP 9 mmol/L (5-15); CALCIUM 9.1 mg/dL (8.5-10.1); CHLORIDE 110 mmol/L (98-107); CREATININE 1.02 mg/dL (0.55-1.02)
[2020-02-12 05:22] LABS: ALKALINE PHOSPHATASE 62 U/L (45-117); BILIRUBIN,TOTAL 0.3 mg/dL (0.2-1.0); TOTAL PROTEIN 7.1 g/dL (6.4-8.2)
[2020-02-12 05:49] LABS: MICROSCOPIC INDICATED
[2020-02-12 06:04] VITALS: BP 145/60
[2020-02-12] MEDS ORDERED: OMNIPAQUE 350 MG/ML, 100ML BOTTLE ONE (06:21)
[2020-02-12] MEDS ORDERED: CEFTRIAXONE PMX 1GM/50ML 50 ML IV ONE (06:30)
[2020-02-12] MEDS ORDERED: CEFTRIAXONE PMX 1GM/50ML 50 ML ONE (06:45)
--- NOTE | 2020-02-12 07:12 | NUR ---
REC REPORT PT RESTING AT THIS TIME IV INFUSING WELL
--- NOTE | 2020-02-12 08:31 | NUR ---
PT RESTING REQUESTED WATER AND IT WAS PROVIDED
--- NOTE | 2020-02-12 10:00 | NUR ---
NEW HODGSON PLACED
--- NOTE | 2020-02-12 10:40 | NUR ---
WAITING ON TRANSPORT
== END 2020-02-12 12:09 | disposition home or self-care (01) ==
LOC: ED 05:50
DX: N30.00 Acute cystitis without hematuria (principal); K59.00 Constipation, unspecified; R10.84 Generalized abdominal pain; N10 Acute pyelonephritis; I10 Essential (primary) hypertension; E11.9 Type 2 diabetes mellitus without complications; Z86.73 Personal history of transient ischemic attack (TIA), and cerebral infarction without residual deficits
CPT/HCPCS: 36415; 74177; 80053; 81001; 83690; 85025; 87077; 87086; 87186; 96365; 96375; 99285; J0696; J2270; J2405; J7030; Q9967

== ENCOUNTER 2020-03-07 08:12 | Emergency (ER) | payer MEDICARE ==
[~2020-03-07] VITALS: Ht 162.6 cm; Wt 62.0 kg
[2020-03-07 08:52] LABS: BASOPHILS # (AUTO) 0.03 x10^3/uL (0-0.1); BASOPHILS % (AUTO) 0 % (0-1); EOSINOPHILS # (AUTO) 0.09 x10^3/uL (0-0.4); EOSINOPHILS % (AUTO) 1 % (1-7); LYMPHOCYTES # (AUTO) 2.03 x10^3/uL (1-3.4); LYMPHOCYTES % (AUTO) 22 % (22-44); MD NO; MEAN CORPUSCULAR HEMOGLOBIN 30.6 pg (27.0-34.8); MEAN CORPUSCULAR HGB CONC 31.9 g/dL (32.4-35.8); MEAN CORPUSCULAR VOLUME 95.9 fL (80-100); MEAN PLATELET VOLUME 8.7 fL (7.4-10.4); MONOCYTES # (AUTO) 0.49 x10^3/uL (0.2-0.8); MONOCYTES % (AUTO) 5 % (2-9); NEUTROPHILS # (AUTO) 6.46 x10^3/uL (1.8-6.8); NEUTROPHILS % (AUTO) 71 % (42-75); PLATELET COUNT 560 x10^3/uL (130-400); RED BLOOD COUNT 3.91 x10^6/uL (3.82-5.3); RED CELL DISTRIBUTION WIDTH 15.5 % (9.6-15.2)
[2020-03-07 09:01] LABS: ALANINE AMINOTRANSFERASE 15 U/L (12-78); ALBUMIN 3.3 g/dL (3.4-5.0); ANION GAP 5 mmol/L (5-15); CALCIUM 9.8 mg/dL (8.5-10.1); CHLORIDE 104 mmol/L (98-107); CREATININE 0.93 mg/dL (0.55-1.02)
[2020-03-07 09:04] LABS: ALKALINE PHOSPHATASE 78 U/L (45-117); BILIRUBIN,TOTAL 0.2 mg/dL (0.2-1.0); TOTAL PROTEIN 7.1 g/dL (6.4-8.2)
--- NOTE | 2020-03-07 09:35 | NUR ---
ABLE TO INSERT HODGSON WITH RN ASSIST X1. CLEAR URINE DRAINING, SAMPLE COLLECTED, WALKED TO LAB. PT RESTING CALMLY IN BED. NO STATED NEEDS AT THIS TIME. WILL CONTINUE TO MONITOR.
[2020-03-07 09:55] LABS: MICROSCOPIC INDICATED
--- NOTE | 2020-03-07 11:03 | NUR ---
THROUGHPUT: PT NEEDS TRANSPORT BACK TO HOME DUE TO IMOBILIZATION. COMPLETE PSA CALLED [facility] TRANSPORT SET UP AT 1212
[2020-03-07 11:44] VITALS: BP 162/77
== END 2020-03-07 11:46 | disposition home or self-care (01) ==
LOC: ED 09:33
DX: N30.00 Acute cystitis without hematuria (principal); N31.9 Neuromuscular dysfunction of bladder, unspecified; E11.9 Type 2 diabetes mellitus without complications; I10 Essential (primary) hypertension; Z86.73 Personal history of transient ischemic attack (TIA), and cerebral infarction without residual deficits; Z88.5 Allergy status to narcotic agent; Z88.1 Allergy status to other antibiotic agents
CPT/HCPCS: 36415; 51702; 80053; 81001; 85025; 87086; 87106; 99284

== ENCOUNTER 2020-04-18 15:00 | Emergency (ER) | payer MEDICARE ==
[~2020-04-18] VITALS: Ht 162.6 cm; Wt 62.0 kg
[2020-04-18] MEDS ORDERED: SODIUM CHLORIDE FLUSH 10ML SYR IVF ONE (15:30)
[2020-04-18] MEDS ORDERED: ONDANSETRON 2MG/ML, 2ML IVPush ONE (15:30)
[2020-04-18] MEDS ORDERED: MORPHINE SULFATE 4 MG/ML, 1ML IVPush PRN (15:30)
[2020-04-18] MEDS ORDERED: ONDANSETRON 2MG/ML, 2ML ONE (15:49)
[2020-04-18] MEDS ORDERED: MORPHINE SULFATE 4 MG/ML, 1ML ONE (15:49)
--- NOTE | 2020-04-18 15:56 | NUR ---
PT DENIED A ENEMA, PT STATED SHE JUST HAD ONE AT HOME AND IT DID NOT HELP"
[2020-04-18 16:09] LABS: BASOPHILS % (AUTO) 1 % (0-1); EOSINOPHILS % (AUTO) 1 % (1-7); LYMPHOCYTES % (AUTO) 19 % (22-44); MEAN CORPUSCULAR HEMOGLOBIN 30.6 pg (27.0-34.8); MEAN CORPUSCULAR HGB CONC 31.9 g/dL (32.4-35.8); MEAN PLATELET VOLUME 9.1 fL (7.4-10.4); MONOCYTES % (AUTO) 7 % (2-9); NEUTROPHILS % (AUTO) 72 % (42-75); PLATELET COUNT 414 x10^3/uL (130-400); RED BLOOD COUNT 4.22 x10^6/uL (3.82-5.3); RED CELL DISTRIBUTION WIDTH 14.8 % (9.6-15.2)
[2020-04-18 16:11] LABS: ALANINE AMINOTRANSFERASE 16 U/L (12-78); ALBUMIN 3.3 g/dL (3.4-5.0); ANION GAP 4 mmol/L (5-15); CALCIUM 9.3 mg/dL (8.5-10.1); CHLORIDE 109 mmol/L (98-107); CREATININE 0.85 mg/dL (0.55-1.02)
[2020-04-18 16:13] LABS: ALKALINE PHOSPHATASE 74 U/L (45-117); BILIRUBIN,TOTAL 0.4 mg/dL (0.2-1.0); TOTAL PROTEIN 6.9 g/dL (6.4-8.2)
[2020-04-18 16:58] LABS: MD NO
--- NOTE | 2020-04-18 17:13 | NUR ---
PT REFUSED ENEMA FOR 2ND AND 3RD TIME. PT STATED SHE WANTS TO GO HOME AND CAN ONLY GO BY [facility] DUE TO HER MS
[2020-04-18 18:32] VITALS: BP 132/71
== END 2020-04-18 18:34 | disposition home or self-care (01) ==
LOC: ED 15:30
DX: K59.00 Constipation, unspecified (principal); R10.12 Left upper quadrant pain; R94.31 Abnormal electrocardiogram [ECG] [EKG]; R63.0 Anorexia; E11.9 Type 2 diabetes mellitus without complications; I10 Essential (primary) hypertension; Z86.73 Personal history of transient ischemic attack (TIA), and cerebral infarction without residual deficits
CPT/HCPCS: 36415; 74021; 80053; 83690; 85025; 93005; 96374; 96375; 99285; J2270; J2405